=== PATIENT | male | born 1945 | race Caucasian/White ===

== ENCOUNTER 2016-10-19 07:32 | Outpatient (CLI) | payer MEDICARE ==
[~2016-10-19] VITALS: Ht 188 cm; Wt 95.5 kg
--- NOTE | ~2016-10-19 | OP ---
PATIENT NAME: JESSICA PARSONS MEDICAL RECORD: [id number] :41 LOCATION:D.CAT ADMISSION DATE: SURGEON: STACY CANSECO MD DATE OF OPERATION: 10/19/2016 PROCEDURES: 1. PTCA stent LAD. 2. PTCA stent left circumflex. 3. PTCA stent left circumflex first obtuse marginal. 4. Intravascular ultrasound. 5. Left heart catheterization. 6. Selective coronary angiography. 7. Left ventriculogram. INDICATION: Angina and coronary artery disease. PROCEDURE IN DETAIL: After informed consent has been obtained and after detailed explanation of risks, benefits as well as alternative therapies, the patient elected to proceed with angiogram and angioplasty. The right radial artery was prepped and draped in normal sterile fashion. Right radial artery was cannulated via modified Seldinger technique with placement of 6-Montserratian sheath. All catheters exchanged through this sheath. FINDINGS: The left ventriculogram was performed in the standard 30-degree GUAJARDO view reveals good cardiac wall motion throughout all segments. Overall ejection fraction estimated at 55%. SELECTIVE CORONARY ANGIOGRAPHY: 1. Left main showed no significant angiographic disease. 2. Left anterior descending has previously placed stent. This is widely patent. However, in the mid vessel, there is 90% stenosis. 3. The left circumflex had an 80% stenosis in the mid vessel. The first obtuse marginal has a 90% stenosis. 4. Right coronary has moderate irregularities, previously placed stent is widely patent. Intravascular ultrasound reveals that there is no significant disease elsewise. PTCA STENT OF THE LAD: The LAD lesion was an 8-mm lesion in a 2.25 mm vessel, JULIO C 3 flow before and after the intervention. Intervention was undertaken with a 2.25 x 11 mm BioFreedom stent. Result was 0% residual stenosis. PTCA STENT OF THE LEFT CIRCUMFLEX: The lesion was a 6-mm lesion in a 3.0 mm vessel, JULIO C 3 flow before and after the intervention. The intervention was undertaken with a 3.0 x 8 mm BioFreedom stent. Result was 0% residual stenosis. PTCA STENT OF THE FIRST OBTUSE MARGINAL: The lesion was a 90% stenosed lesion in a 2.5 mm vessel, it was an 11-mm lesion. The stent used was a 2.5 x 14 mm BioFreedom stent. Result was 0% residual stenosis. OVERALL IMPRESSION: Successful percutaneous transluminal coronary angioplasty stent of the left anterior descending and circumflex, both going from 90% initial stenosis to 0% residual stenosis. TRANSINT:[id number] Voice Confirmation ID: [id number] DOCUMENT ID: [id number] OPERATIVE REPORT [id number] JESSICA PARSONS JEFFREY MD CC: [id number] DICTATION DATE: 10/19/16 1023 PACK MASTER: 10/19/16 1811 DEP CLI 10/19/16 [facility] [address] [id number]
--- NOTE | ~2016-10-19 | HP ---
PATIENT: JESSICA PARSONS MEDICAL RECORD: [id number] ACCOUNT: [id number] LOCATION:[facility] : 41 ADMISSION DATE: 10/19/16 HISTORY AND PHYSICAL EXAMINATION ADMITTING DIAGNOSES: 1. Angina. 2. Abnormal nuclear stress test. 3. Chronic obstructive pulmonary disease. 4. Hypertension. 5. Hyperlipidemia. 6. Chronic NSAID use. HISTORY OF PRESENT ILLNESS: This is a gentleman who has a past history of coronary artery disease. Last cardiac intervention was 11/06/2013, now has recurrent anginal symptomatology. Nuclear stress test revealed significant reversible ischemia. He is now brought for cardiac catheterization. PHYSICAL EXAMINATION: GENERAL APPEARANCE: Well-nourished, well-developed, appears stated age. Level of distress, comfortable. PSYCHIATRIC: Mental status, alert, normal affect. Orientation, oriented to time, place and person. EYES: Lids and conjunctiva, noninjected. No discharge, no pallor. ENT: Lips, teeth, gums, normal dentition. Oropharynx, no cyanosis, no pallor. NECK: Carotid arteries, bilateral normal upstroke, no bruits, no thrills. JUGULAR VEINS: No jugular venous pressure or distention. CERVICAL LYMPH NODES: Nontender, nonenlarged. THYROID: Not enlarged. Nontender. No nodules. LUNGS: Respiratory effort, unlabored. CHEST: Normal curvature. No thoracic deformity. No chest wall tenderness. Percussion, resonant. Auscultation, clear. No wheezes, no rales, no rhonchi. CARDIOVASCULAR: Precordial exam, nondisplaced. No heaves or pericardial thrills. Rate and rhythm, regular. Heart sounds, normal S1, normal S2. No S3, no gallop, no rub. Systolic murmur, not heard. Diastolic murmur, not heard. EXTREMITIES: No cyanosis, no edema. Peripheral pulses, full and equal in all extremities, except as noted. No bruits appreciated. ABDOMEN: Soft, nondistended. Normal aorta. No bruit. Nontender. No masses. Liver, nontender, no hepatomegaly. Spleen, nontender, no splenomegaly. MUSCULOSKELETAL: No joint tenderness. No joint swelling. No erythema. NEUROLOGICAL: Normal gait, normal strength, normal tone. SKIN: Warm and dry. REVIEW OF SYSTEMS: The patient reports easy bruising but reports no swollen glands. The patient reports no fever, no night sweats, no significant weight gain, no significant weight loss. No significant exercise tolerance. The patient reports no dry eyes, no irritation, no vision change. Patient reports no difficulty hearing and no ear pain. Patient reports no frequent nose bleeds or nose and sinus problems. Patient reports on arm pain on exertion. No shortness of breath while lying down. No history of heart murmur. Patient reports no cough, no wheezing or coughing up blood. Patient reports no abdominal pain, no vomiting. Normal appetite. No diarrhea and not vomiting blood. No nausea and no constipation. Patient reports no incontinence. No difficulty urinating. No hematuria. No increased frequency. Patient reports no muscle aches. No weakness, no arthralgias, no back pain. No swelling of the HISTORY AND PHYSICAL [id number] JESSICA PARSONS extremities. Patient reports no abnormal mole, no jaundice, no rashes. Reports no loss of consciousness. No weakness and no numbness. No seizures, dizziness, or headaches. The patient reports no depression, no sleep disturbance, feeling safe in a relationship and no alcohol abuse. Patient reports on fatigue. Reports no runny nose or sinus pressure. No itching, no hives, and no frequent sneezing. OVERALL IMPRESSION: Chest pain compatible with angina and abnormal nuclear stress test. He has a high likelihood of recurrent hemodynamically significant coronary artery disease. We will proceed with coronary angiography. Further care depends upon the findings of the angiography. TRANSINT:[id number] Voice Confirmation ID: [id number] DOCUMENT ID: [id number] STACY CANSECO MD CC: [id number] DICTATION DATE: 10/19/16909 SYSTEMS PLANNER: 10/19/16 1019 [facility] [address] [place] [address]
--- NOTE | ~2016-10-19 | HEMODYNAMI ---
PATIENT:JESSICA PARSONS MEDICAL RECORD: [id number] : 41 LOCATION:[facility] ADMISSION DATE: 10/19/16 Generatedon:10/19/201610:23 Patient name: JESSICA PARSONS Patient #: [id number] SSN: DO B: 1945 Date of study: 10/19/2016 Page: Of Hemodynamic Procedure Report Patient Data Patient Demographics Procedure consent was obtained First Name: JESSICA Gender: Male Last Name: JAQUELINE : 1945 [facility] Initial: B Age: 71 year(s) Patient #: [id number] Race: Additional ID: [id number] Contact details [address]: [address] [place] [address] State: [place] City: [place] Zip code: [address] Past Medical History Allergies: No known allergies Admission Admission Data Admission Date: 10/19/2016 Admission Time: 7:32 Height (in.): 74 BSA: 2.22 (m2) Height (cm.): 187.96 BMI: 26.96 (kg/m2) Weight (lbs.): 210 Weight (kg.): 95.25 Lab Results Lab Result Date: 10/19/2016 Lab Result Time: 8:05 Biochemistry Name Units Result Min Max BUN mg/dl 15 --(--*-)-- 7 18 Creatinine mg/dl 0.9 --(-*--)-- 0.6 1.3 CBC Name Units Result Min Max Hematocrit % 42.4 --(*---)-- 42 54 Hemoglobin g/dl 14.2 --(*---)-- 13.5 17.5 Procedure Procedure Types Cath Procedure Diagnostic Procedure [facility] w/Coronaries FFR/IVUS Intra-Coronary IVUS Initial PCI Procedure Coronary Stent Initial x2 Coronary Stent Additional Miscellaneous Procedures Moderate Sedation up to 45 minutes Procedure Description Procedure Date Procedure Date: 10/19/2016 Procedure Start Time: 9:50 Procedure End Time: 10:22 Procedure Staff Name Function Rohan Rabago MD Performing Physician Fernando Fuentes RT Scrub Analia Abebe RN Nurse Reji Cr RT Monitor Procedure Data Cath Procedure Fluoroscopy Diagnostic fluoroscopy Total fluoroscopy Time: time: 10.4 min 10.4 min Diagnostic fluoroscopy Total fluoroscopy dose: dose: 1477 mGy 1477 mGy Contrast Material Contrast Material Type Amount (ml) Isovue 300 186 Entry Location Entry Primary Successful Side Size Upsize Upsize Entry Closure Andujar ccessful Closure Location (Fr) 1 (Fr) 2 (Fr) Remarks Device Remarks Radial Right 6 Fr Mechanical artery Short Compression Estimated blood loss: 10 ml Diagnostic catheters Device Type Used For End Catheter Placement Diagnostic Terumo 5Fr Procedure [place] 110cm catheter Procedure Complications No complications Procedure Medications Medication Administration Route Dosage Oxygen NC 2 l/min Lidocaine 2% added to field 20 Heparin Flush Bag added to field 2 bags (1000units/500ml NS) 0.9% NaCl I.V. 100 ml/hr Radial Cocktail added to field 1 syringe (Verapomil 2mg/Nitro 400mcg/Heparin 1500units) Versed I.V. 1 mg Fentanyl I.V. 50 mcg Radial Cocktail I.A. 1 syringe (Verapomil 2mg/Nitro 400mcg/Heparin 1500units) Versed I.V. 1 mg Fentanyl I.V. 50 mcg Heparin Bolus I.V. 4000 units Versed I.V. 0.5 mg Fentanyl I.V. 25 mcg Versed I.V. 0.5 mg Fentanyl I.V. 25 mcg Hemodynamics Rest BSA: 2.22 (m2) O2 Consumption: Estimated: 252.54 (ml/min) O2 Consumption indexed : Estimated:113.76 (ml/min/m) Heart Rate: 66 (bpm) Pressure Samples Time Site Value (mmHg) Purpose Heart Use Rate(bpm) 9:53 LV 99/12,41 Snapshot 60 9:53 LV 113/12,16 Snapshot 68 Snapshots Pre Cath Intra NCS Post Cath Vital Signs Time Heart Resp SPO2 etCO2 [id number] NIBP (mmHg) Rhythm Pain Sedation Rate (ipm) (%) (mmHg) (mmHg) Status Level (bpm) 9:44:10 68 16 99 0 0 173/98(126) NSR 0 (11) 10(A) , No pain 9:48:28 68 16 97 0 0 139/94(117) NSR 0 (11) 10(A) , No pain 9:52:46 68 15 96 0 0 135/73(110) NSR 0 (11) 9(A) , No pain 9:57:02 65 14 96 0 0 113/74(93) NSR 0 (11) 9(A) , No pain 10:02:07 65 18 94 0 0 138/72(104) NSR 0 (11) 9(A) , No pain 10:06:25 61 15 98 0 0 141/70(113) NSR 0 (11) 9(A) , No pain 10:10:41 57 16 99 0 0 141/78(112) NSR 0 (11) 9(A) , No pain 10:15:44 59 16 98 0 0 164/67(117) NSR 0 (11) 10(A) , No pain 10:20:08 60 16 98 0 0 142/81(105) NSR 0 (11) 10(A) , No pain Medications Time Medication Route Dose Verified Delivered Reason Note s Effectiveness by by 9:40:19 Oxygen NC 2 l/min Rohan Singhie used for Hima Abebe RN procedure 9:40:28 Lidocaine 2% added 20ml Rohan Madrigal for local to vial Hima Rabago MD anesthetic field 9:40:34 Heparin Flush added 2 bags Rohan Madrigal used for Bag to Hima Rabago MD procedure (1000units/500ml field NS) 9:40:43 0.9% NaCl I.V. 100 Rohan Buffie Per physician ml/hr Hima Abebe RN 9:43:48 Radial Cocktail added 1 Rohan Helms (Verapomil to syringe Hima Abebe RN 2mg/Nitro field 400mcg/Heparin 1500units) 9:47:02 Versed I.V. 1 mg Rohan Singhie for sedation Hima Abebe RN 9:47:09 Fentanyl I.V. 50 mcg Rohan Singhie for sedation Hima Abebe RN 9:51:43 Radial Cocktail I.A. 1 Rohan Rohan for (Verapomil syringe Hima hernandez 2mg/Nitro 400mcg/Heparin 1500units) 9:51:51 Versed I.V. 1 mg Rohan Helms for sedation Hima Abebe RN 9:51:56 Fentanyl I.V. 50 mcg Rohan Helms for sedation Hima Abebe RN 9:59:56 Heparin Bolus I.V. 4000 Rohan Helms for veri fied units Hima Abebe RN anticoagulation with dr rabago 10:05:44 Versed I.V. 0.5 mg Rohan Helms for sedation Hima Abebe RN 10:05:50 Fentanyl I.V. 25 mcg Rohan Helms for sedation Hima Abebe RN 10:11:06 Versed I.V. 0.5 mg Rohan Helms for sedation Hima Abebe RN 10:11:10 Fentanyl I.V. 25 mcg Rohan Helms for sedation Hima Abebe RN Procedure Log Time Note 9:25:57 Informed consent obtained and on chart 9::07 Diagnostic Cath Status : Elective 9:27:05 Fernando Fuentes RT(R) (CV) sent for patient. Start room use. 9:27:07 Time tracking: Regular hours 9:27:14 Plan of Care:Hemodynamics will remain stable., Cardiac rhythm will remain stable., Comfort level will be maintained., Respiratory function will remain adequate., Patient/ family verbilizes understanding of procedure., Procedure tolerated without complication., Recovers from procedure without complications.. 9:29:20 Patient received from Pre/Post Procedure Room to CCL 1 Alert and oriented. Tansferred to table in Supine position. 9:29:21 Warm blankets applied, and john hugger turned on for patient comfort. 9:29:22 Correct patient and procedure confirmed by team. 9:29:23 ECG and BP/O2 sat monitors applied to patient. 9:40:19 Oxygen 2 l/min NC was administered by Analia Abebe RN; used for procedure; 9:40:28 Lidocaine 2% 20ml vial added to field was administered by Rohan Rabago MD; for local anesthetic; 9:40:34 Heparin Flush Bag (1000units/500ml NS) 2 bags added to field was administered by Rohan Rabago MD; used for procedure; 9:40:43 0.9% NaCl 100 ml/hr I.V. was administered by Analia Abebe RN; Per physician; 9:42:56 Vital chart was started 9:43:48 Radial Cocktail (Verapomil 2mg/Nitro 400mcg/Heparin 1500units) 1 syringe added to field was administered by Analia Abebe RN; ; 9:44:26 H&P Date Dictated: 10/19/2016 Within 30 days and on chart., H&P Addendum completed by physician on day of procedure. (MUST COMPLETE FOR ALL OUTPATIENTS). 9:44:27 Pre-procedure instructions explained to patient. 9:44:27 Pre-op teaching completed and patient verbalized understanding. 9:44:30 Family in waiting room. 9:44:39 Patient NPO since Midnight. 9:44:44 Patient allergic to No known allergies 9:44:46 Is the patient allergic to Iodine/contrast media? No. 9:44:51 Is patient on blood thinner?Yes 9:44:53 ACC The patient was administered the following blood thiners within the last 24 hours: ACCPlavix 9:45:02 Patient diabetic? No. 9:45:06 Previous problem with sedation/anesthesia? No ? 9:45:07 Snore? Yes 9:45:10 Sleep apnea? Yes 9:45:11 Deviated septum? No 9:45:13 Opens mouth fully? Yes 9:45:15 Sticks out tongue? Yes 9:45:18 Airway obstruction? Yes COPD 9:45:22 Dentures? No ? 9:45:27 Modified Jeramy's test Ulnar < 7 seconds 9:45:30 Patient pain scale 0/10 ?. 9:45:37 IV patent on arrival in left hand with 0.9% NaCl at [facility]. 9:46:15 Lab Result : BUN 15 mg/dl 9:46:15 Lab Result : Hemoglobin 14.2 g/dl 9:46:15 Lab Result : Creatinine 0.9 mg/dl 9:46:16 Lab Result : Hematocrit 42.4 % 9:46:18 Lab results completed and on chart. 9:46:20 Right Radial & Right Groin area was prepped with chlora-prep and draped in sterile fashion 9:46:22 Alarms reviewed by R. N. 9:46:22 Sharps counted by scrub and verified by R.N. 9:46:27 Use device set Radial Dx 9:46:28 MBrace Wrist Support opened to sterile field. 9:46:29 Acist Manifold opened to sterile field. 9:46:29 Acist Hand Control opened to sterile field. 9:46:30 Tegaderm 4 x 4 opened to sterile field. 9:46:31 Acist Syringe opened to sterile field. 9:46:31 Medline Cath Pack opened to sterile field. 9:46:31 Bag Decanter opened to sterile field. 9:46:32 St Hakeem 260cm J .035 wire opened to sterile field. 9:46:36 Physician arrived 9:46:36 --------ALL STOP TIME OUT------ 9:46:37 Final Timeout: patient, procedure, and site verified with staff and physician. All members of the team are in agreement. 9:46:40 Right Radial & Right Groin site verified by team. 9:46:43 Physical assessment completed. ASA score P 2 - A patient with mild systemic disease as per Rohan Rabago MD. 9:46:45 Sedation plan: IV Moderate Sedation Versed, Fentanyl 9:47:02 Versed 1 mg I.V. was administered by Analia Abebe RN; for sedation; 9:47:09 Fentanyl 50 mcg I.V. was administered by Analia Abebe RN; for sedation; 9:47:21 Merit Prelude 6Fr Radial Sheath (NO COST SUPPLY) opened to sterile field. 9:48:54 Baseline sample Acquired. 9:48:56 Baseline sample Acquired. 9:49:03 Baseline sample Acquired. 9:49:15 Baseline sample Acquired. 9:50:10 Procedure started. 9:50:10 Full Disclosure recording started 9:50:14 Local anesthetic to right radial artery with Lidocaine 2% by Rohan Rabago MD.INITIAL ACCESS ONLY 9:50:21 A 6 Fr Short sheath was inserted into the Right Radial artery 9:51:43 Radial Cocktail (Verapomil 2mg/Nitro 400mcg/Heparin 1500units) 1 syringe I.A. was administered by Rohan Rabago MD; for vasodilation; 9:51:51 Versed 1 mg I.V. was administered by Analia Abebe RN; for sedation; 9:51:53 Zero performed for pressure channel P1 9:51:56 Fentanyl 50 mcg I.V. was administered by Analia Abebe RN; for sedation; 9:51:56 Zero performed for pressure channel P1 9:51:59 Zero performed for pressure channel P1 9:52:02 Zero performed for pressure channel P1 9:52:23 A Diagnostic Terumo 5Fr [place] 110cm catheter was advanced over the wire and used for Procedure. 9:53:55 LV gram done using GUAJARDO 9:54:02 Injector settings: Ml/sec: 10, Volume: 20, 9:54:23 RCA angiography performed. 9:55:34 Cordis 6FR XBLAD 3.5 guide catheter opened to sterile field. 9:56:16 [place] Eagleye IVUS Catheter opened to sterile field. 9:56:50 [place] Whisper J 300cm 0.014 guide wire opened to sterile field. 9:56:56 Merit BasixCompak Inflation Kit opened to sterile field. 9:57:03 Catheter removed. 9:57:07 6 Fr XBLAD 3.5 guide catheter was inserted over the wire 9:57:12 LCA angiography performed. 9:59:16 EosHealthtronic Launcher 6Fr AR 2.0 guide catheter opened to sterile field. 9:59:56 Heparin Bolus 4000 units I.V. was administered by Analia Abebe RN; for anticoagulation; verified with dr rabago 10:00:06 WHISPER wire advanced. 10:01:14 Wire advanced across lesion. 10:03:54 Inflation Number: 1 A Biofreedom 2.25 x 11 Stent (No Cost Implant) was prepped and advanced across the Mid LAD. The stent was deployed at 13 COLLETTE for 0:10 (min:sec). 10:04:21 Stent catheter was removed intact over wire. 10:04:26 Wire redirected to cx. 10:05:15 Patient Height : 74 cm 10:05:17 Patient Weight : 210 kg 10:05:25 Wire removed. damaged. 10:05:41 [place] Whisper J 300cm 0.014 guide wire opened to sterile field. 10:05:44 Versed 0.5 mg I.V. was administered by Analia Abebe RN; for sedation; 10:05:50 Fentanyl 25 mcg I.V. was administered by Analia Abebe RN; for sedation; 10:06:06 WHISPER wire advanced. 10:06:08 Wire advanced across lesion. 10:09:38 Inflation Number: 1 A Biofreedom 2.5 x 14 stent (No Cost Implant) was prepped and advanced across the 1st Ob Liliana. The stent was deployed at 13 COLLETTE for 0:10 (min:sec). 10:09:43 Stent catheter was removed intact over wire. 10:10:14 Wire redirected to CX. 10:11:06 Versed 0.5 mg I.V. was administered by Analia Abebe RN; for sedation; 10:11:10 Fentanyl 25 mcg I.V. was administered by Analia Abebe RN; for sedation; 10:12:27 Inflation Number: 1 A Biofreedom 3.0 x 8 stent (No Cost Implant) was prepped and advanced across the Mid CX. The stent was deployed at 15 COLLETTE for 0:00 (min:sec). 10:12:33 Stent catheter was removed intact over wire. 10:13:03 Wire removed. damaged. 10:13:06 Guide catheter removed. 10:13:10 [place] Arkeia Softwareisper J 300cm 0.014 guide wire opened to sterile field. 10:13:20 6 Fr AR 2 guide catheter was inserted over the wire 10:14:12 WHISPER wire advanced. 10:14:55 Wire advanced across lesion. 10:15:00 IVUS catheter advanced over wire. 10:17:39 IVUS pass to RCA lesion performed. 10:17:40 IVUS catheter removed over wire. 10:17:46 Wire removed. 10:17:47 Guide catheter removed. 10:17:52 Terumo TR Band Standard opened to sterile field. 10:18:03 Sheath removed intact; hemostasis achieved with Mechanical Compression to the Right Radial artery. 10:18:05 Procedure ended.(Physican Out) 10:19:55 Fluoroscopy time 10.40 minutes. 10:19:59 Fluoroscopy dose: 1477 mGy 10:19:59 Flurop Dose total: 1477 10:20:02 Contrast amount:Isovue 300 186ml. 10:20:03 Sharps counted by scrub and verified by R.N. 10:20:05 TR band inflated with 12cc of air. 10:20:07 Insertion/operative site no bleeding no hematoma. 10:20:12 Post right radial artery:stable, soft, clean and dry 10:20:14 Post Procedure Pulses reassessed and unchanged 10:20:15 Post-procedure physical assessment completed. ASA score P 2 - A patient with mild systemic disease as per Rohan Rabago MD. 10:20:17 Post procedure rhythm: unchanged. 10:20:19 Estimated blood loss: 10 ml 10:20:20 Post procedure instruction explained to patient.Patient verbalizes understanding. 10:20:21 Patient needs reinforcement of post procedure teaching. 10:21:46 Procedure type changed to Cath procedure, Diagnostic procedure, LHC, LHC w/Coronaries, FFR/IVUS, Intra-Coronary IVUS Initial, PCI procedure, Coronary Stent Initial x2, Coronary Stent Additional, Miscellaneous Procedures, Moderate Sedation up to 45 minutes 10:22:29 Procedure and supply charges have been captured, reviewed, submitted and are correct. 10:22:32 Procedure Complication : No complications 10:22:34 Vital chart was stopped 10:22:34 See physician's report for complete and final results. 10:22:36 Report given to Pre/Post Procedure Room. 10:22:39 Patient transfered to Pre/Post Procedure Room with Stretcher. 10:22:41 Procedure ended. 10:22:41 Full Disclosure recording stopped 10:22:45 End room use (Document Last) Intervention Summary Intervention Notes Time ActionType Lesion and Equipment Action# Pressure Duration Attributes Used 10:03:54 Place stent Mid LAD Biofreedom 1 13 00:10 2.25 x 11 Stent (No Cost Implant) 10:09:38 Place stent 1st Ob Liliana Biofreedom 1 13 00:10 2.5 x 14 stent (No Cost Implant) 10:12:27 Place stent Mid CX Biofreedom 1 15 00:00 3.0 x 8 stent (No Cost Implant) Device Usage Item Name Manufacture Quantity Catalog Hospital Part Current Minima l Lot# / Number Charge Number Stock Stock Serial# Code [facility] Advanced 1 140-0250-00 234232 51988 736255 5 Wrist Vascular Support Dynamics Acist Acist 1 97103 742883 162935 939300 5 Manifold Medical Systems Inc Acist Hand Acist 1 69853 224340 955796 916180 5 Control Medical Systems Inc Tegaderm 4 3M 1 1626W 464091 480812 439765 5 x 4 Acist Acist 1 00145 457593 019658 523166 20 Syringe Medical Systems Inc Medline Cardinal 1 [id number] 064987 47485 230315 5 Cath Pack Health Bag Microtek 1 2002S 504795 21404 520089 [address] H[address]em St Hakeem 1 330383 471666 367965 206019 30 260cm J .035 wire Merit Merit 1 [id number] 375407 758371 5 Prelude 6Fr Medical Radial Sheath (NO COST SUPPLY) Diagnostic Terumo 1 41-7541 631445 138537 292874 5 Terumo 5Fr [place] 110cm catheter Cordis 6FR Cardinal 1 [id number] 903762 261809 522645 10 XBLAD 3.5 Health guide catheter [place] Hickory 1 [id number] 276543 663234 237793 8 [place] Eagleye IVUS Catheter Branham Branham 3 [id number] 616000 664479 089889 5 Whisper J Vascular 300cm 0.014 guide wire Merit Merit 1 [id number] 945058 615243 549610 15 BasixCompak Medical Inflation Kit Medtronic Medtronic 1 [id number] 719046 38178 948618 1 Launcher 6Fr AR 2.0 guide catheter Biofreedom Biosensors 1 BFRC2-2211 840064 730675 5 [id number] 2.25 x 11 [place] SA Stent (No Cost Implant) Biofreedom Biosensors 1 [facility]2-2514 289349 800293 5 [id number] 2.5 x 14 [place] SA stent (No Cost Implant) Biofreedom Biosensors 1 BFRC2-3008 505601 678675 5 [id number] 3.0 x 8 [place] SA stent (No Cost Implant) Terumo TR Terumo 1 [id number] 498084 422018 520216 40 Band Standard Signature Audit [place] Stage Time Signature Unsigned Intra-Procedure 10/19/2016 Reji Cr 10:23:47 AM RT(R) Signatures Monitor : Reji Cr RT Signature : Date : Time : [facility] [address] [place] [address]
[~2016-10-19 07:32] MED LIST: ACCUNEB0.63 MG/3 INH; BAYER CHEWABLE81 MG PO; METOPROLOL TART50 MG PO; NORVASC2.5 MG PO; PLAVIX75 MG PO; SYMBICORT 16010.2 GM INH
[2016-10-19] MEDS ORDERED: ZOCOR40 MG PO (07:59)
[2016-10-19 08:05] VITALS: BP 147/86; Ht 188 cm; Wt 95.5 kg
[2016-10-19 08:14] LABS: BASOPHILS 0.5 % (0-2); EOSINOPHILS 8.4 % (0-7); HEMATOCRIT 42.4 % (42.0-54.0); HEMOGLOBIN 14.2 g/dL (13.5-17.5); IMMATURE GRANULOCYTES 0.3 % (0-5); LYMPHOCYTES 6.4 % (15-50); MCH 30.4 pg (26.0-34.0); MCHC 33.5 g/dL (31.0-37.0); MCV 90.8 fL (80.0-100.0); MEAN PLATELET VOLUME 9.4 fL (7.4-10.4); MONOCYTES 11.7 % (2-11); NEUTROPHILS 72.7 % (40-80); PLATELET COUNT 260 10x3/uL (130-400); RBC 4.67 10x6/uL (4.20-6.10); RDW 12.9 % (11.5-14.5); WBC 6.6 10x3/uL (4.8-10.8)
[2016-10-19 08:51] LABS: CALC OSMOLALITY 280 mosm/kg (275-300); CALCIUM 8.8 mg/dL (8.5-10.1); CARBON DIOXIDE 27.9 mmol/L (21.0-32.0); CHLORIDE - SERUM 104 mmol/L (98-107); CKMB 0.3 U/L (0.0-3.6); CREATINE KINASE 75 UL (21-232); CREATININE - SERUM 0.9 mg/dL (0.6-1.3); GLUCOSE 108 mg/dL (74-106); POTASSIUM - SERUM 4.2 mmol/L (3.5-5.1); SODIUM 140 mmol/L (136-145); UREA NITROGEN 15 mg/dL (7-18); eGFR NON AFRICAN AMERICAN 88 mL/min (90-120)
[2016-10-19 08:58] LABS: TROPONIN-I < 0.017 ng/mL (0.000-0.060)
--- NOTE | 2016-10-19 10:55 | NUR ---
2L NC, NO RESP DISTRESS NOTED. RIGHT WRIST TR BAND IN PLACE, NO BLEEDING OR HEMATOMA NOTED. VSS. NO C/O CHEST PAIN OR NAUSEA. FAMILY AT BEDSIDE, CALL LIGHT WITHIN REACH.
--- NOTE | 2016-10-19 11:25 | NUR ---
2L NC, NO RESP DISTRESS NOTED. RIGHT WRIST TR BAND CDI, NO BLEEDING OR HEMATOMA NOTED. VSS. NO C/O NAUSEA OR CHEST PAIN. WILL CONTINUE TO MONITOR.
--- NOTE | 2016-10-19 11:40 | NUR ---
RESTING QUIETLY. 2L NC, NO RESP DISTRESS NOTED. RIGHT WRIST TR BAND CDI, NO BLEEDING OR HEMATOMA NOTED. NO C/O CHEST PAIN OR NAUSEA. CALL LIGHT WITHIN REACH.
--- NOTE | 2016-10-19 12:10 | NUR ---
RIGHT WRIST TR BAND IN PLACE, NO BLEEDING OR HEMATOMA NOTED. 2 NC, NO RESP DISTRESS. NO C/O CHEST PAIN OR NAUSEA. VSS. CALL LIGHT WITHIN REACH.
--- NOTE | 2016-10-19 12:40 | NUR ---
RESTING QUIETLY. 2L NC. RIGHT WRIST TR BAND CDI, NO BLEEDING OR HEMATOMA NOTED. CALL LIGHT WITHIN REACH.
--- NOTE | 2016-10-19 13:40 | NUR ---
2CC OF AIR REMOVED FROM TR BAND, BLEEDING NOTED. 3CC OF AIR PUT BACK IN, BLEEDING STOPPED.
--- NOTE | 2016-10-19 14:01 | NUR ---
3CC OF AIR REMOVED FROM TR BAND, NO BLEEDING NOTED.
--- NOTE | 2016-10-19 14:13 | NUR ---
LEFT HAND PIV D/C'D WITH CATHETER INTACT, BAND AID TO SITE. 2CC OF AIR REMOVED FROM TR BAND, NO BLEEDING NOTED. UP TO BEDSIDE TO GET DRESSED.
--- NOTE | 2016-10-19 14:25 | NUR ---
REMAINING AIR REMOVED FROM TR BAND, DRESSING PLACED TO SITE. DISCHARGE INSTRUCTIONS GIVEN, VERBALIZED UNDERSTANDING.
--- NOTE | 2016-10-19 14:39 | NUR ---
TAKEN OUT VIA WHEELCHAIR BY [facility]OMEN[employer]S ACTIVITIES ADVISER. LEFT FACILITY WITH FAMILY MEMBER AND ALL PERSONAL BELONGINGS.
== END 2016-10-19 14:39 | disposition home or self-care (01) ==
LOC: D.CATH 07:32
PROVIDERS: Internal Medicine Interventional Cardiology
DX: I25.119 Atherosclerotic heart disease of native coronary artery with unspecified angina pectoris (principal); Z00.6 Encounter for examination for normal comparison and control in clinical research program; R94.39 Abnormal result of other cardiovascular function study; I10 Essential (primary) hypertension; E78.5 Hyperlipidemia, unspecified; Z79.1 Long term (current) use of non-steroidal anti-inflammatories (NSAID); Z01.812 Encounter for preprocedural laboratory examination
CPT/HCPCS: 92978; 93458; C9600 ×2; C9601

== ENCOUNTER 2017-07-26 12:45 | Emergency (ER) | payer MEDICARE ==
[~2017-07-26 12:45] MED LIST changes: +ZOCOR40 MG PO
[2017-07-26 13:14] LABS: BASOPHILS 0.2 % (0-2); EOSINOPHILS 2.3 % (0-7); HEMATOCRIT 41.5 % (42.0-54.0); IMMATURE GRANULOCYTES 0.3 % (0-5); LYMPHOCYTES 8.7 % (15-50); MCH 30.1 pg (26.0-34.0); MCHC 33.7 g/dL (31.0-37.0); MCV 89.2 fL (80.0-100.0); MEAN PLATELET VOLUME 9.2 fL (7.4-10.4); MONOCYTES 7.7 % (2-11); NEUTROPHILS 80.8 % (40-80); PLATELET COUNT 248 10x3/uL (130-400); RBC 4.65 10x6/uL (4.20-6.10); RDW 13.1 % (11.5-14.5)
[2017-07-26 13:54] LABS: INR 1.02 (0.85-1.17)
[2017-07-26 13:55] LABS: APTT 34.2 SECONDS (22.8-39.4)
[2017-07-26 14:02] LABS: ALBUMIN 3.2 g/dL (3.4-5.0); ALKALINE PHOSPHATASE 54 U/L (46-116); ALT (SGPT) 14 U/L (10-68); CALC OSMOLALITY 278 mosm/kg (275-300); CARBON DIOXIDE 26.5 mmol/L (21.0-32.0); CHLORIDE - SERUM 104 mmol/L (98-107); CREATININE - SERUM 0.8 mg/dL (0.6-1.3); GLUCOSE 135 mg/dL (74-106); POTASSIUM - SERUM 3.7 mmol/L (3.5-5.1); PROTEIN - SERUM 6.9 g/dL (6.4-8.2); SODIUM 138 mmol/L (136-145); UREA NITROGEN 14 mg/dL (7-18); eGFR NON AFRICAN AMERICAN > 90 mL/min (90-120)
== END 2017-07-26 14:42 | disposition other institution (70) ==
LOC: D.ER 12:45
PROVIDERS: Emergency Medicine
DX: I63.9 Cerebral infarction, unspecified (principal); R47.81 Slurred speech; R29.810 Facial weakness

== ENCOUNTER 2017-07-31 17:48 | Inpatient (IN) | payer MEDICARE ==
[~2017-07-31] VITALS: Ht 188 cm; Wt 90.7 kg
--- NOTE | ~2017-07-31 | CN ---
PATIENT NAME:JESSICA CURIEL MEDICAL RECORD: [id number] : 41 LOCATION:[id number] ADMIT DATE: 07/31/17 ACCOUNT: [id number] CONSULTING PHYSICIAN: KIM OMER MD REFERRING PHYSICIAN: VIDHYA KHALIL MD DATE OF CONSULTATION: 08/22/2017 CONSULT REQUESTING PHYSICIAN: Dr. Goldman. REASON FOR CONSULTATION: Right sided pleural effusion, atelectasis of right lower lobe. HISTORY OF PRESENT ILLNESS: Mr. Curiel is a 72-year-old gentleman who has a history of CA of the lung, COPD. 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 Since then, he is on Plavix. The patient has swallowing evaluation and he is on pureed thick diet. According to the patient, he coughs whenever he is eating, he feels like the food is not going down his throat. Denies any fever and chill. The patient has chest radiograph and that was abnormal. CT scan of the chest was done, which showed moderate side right pleural effusion with atelectasis. He follows by Dr. Goldman for CA of the lung. It was more than 9 years ago and this cancer was in remission. REVIEW OF SYSTEMS: Mainly in the history of present illness. PAST MEDICAL HISTORY: 1. History of cancer of the lung. 2. Chronic obstructive pulmonary disease. 3. Coronary artery disease. 4. Hypertension. 5. History of myocardial infarction. 6. History of ethanol abuse. 7. History of skin cancer. PAST SURGICAL HISTORY: 1. Coronary artery angioplasty. 2. Cataract surgery. 3. Skin cancer and excision. ALLERGIES: No known drug allergies. MEDICATIONS: On Birdbox is reviewed. He is on Plavix, albuterol/ipratropium nebulizer. FAMILY HISTORY: Noncontributory. PHYSICAL EXAMINATION: GENERAL: Now, the patient is lying comfortably in bed. He is not in acute distress. VITAL SIGNS: The blood pressure is 121/79, pulse is 89, respiration 22, temperature 98.2, SpO2 is 94% on room air. HEENT: Conjunctivae are pink. Sclerae are not icteric. There is bruising of the left eyelids. NECK: Neck is supple, no JVD. CHEST: There are decreased breath sound at the right base with dullness of percussion. CONSULT REPORT [id number] JESSICA CURIEL ABDOMEN: Abdomen is soft, bowel sounds present. No hepatosplenomegaly. RECTAL: Deferred. EXTREMITIES: No cyanosis, no clubbing, no pedal edema. SKIN: The skin is warm, normal turgor. CENTRAL NERVOUS SYSTEM: The patient is awake and alert. There are no obvious cranial nerve abnormality. The gait was not tested. He has hemiparesis of the left side, left lower extremity worse than the left upper extremity. IMAGING: CT scan of the chest: There is moderate large sized right-sided pleural effusion. There is atelectasis of right lower lobe with volume loss. There is significant debris in the right main stem and some in the left main stem. LABORATORY DATA: CBC: The WBC on admission was 14.2, hemoglobin 13.3, hematocrit 41.5, the platelet count was 445. IMPRESSION: 1. Right pleural effusion. 2. Atelectasis of the right lower lobe, pneumonia of the right lower lobe, possible aspiration pneumonia with the patient's history of CVA and dysphagia and coughing when he is eating. 3. Cerebrovascular accident with right hemiparesis. 4. Leukocytosis secondary to pneumonia. 5. History of CA of the lung, status post chemotherapy and radiation therapy, almost 10 years ago, followed by Dr. Goldman. 6. Oral thrush. 7. Chronic obstructive pulmonary disease without exacerbation. RECOMMENDATION: 1. I have detailed discussion with the patient and daughter and Dr. Goldman. The patient and daughter do not want anything aggressive at this state. I will start him on Zosyn IV and Levaquin IV to cover for aspiration and hospital-acquired pneumonia. 2. Follow up chest radiograph. Continue albuterol/ipratropium nebulizer. 3. The swallowing evaluation is in progress. Dr. Goldman, thank you for involving me in the care of Mr. Curiel. TRANSINT:[id number] Voice Confirmation ID: [id number] DOCUMENT ID: [id number] KIM OMER MD at 1806 CC: [id number] DICTATION DATE: 08/22/17 1759 NETWORK CONTROL TECHNICIAN: 08/22/172001 ADM IN [id number] [place] [address]
--- NOTE | ~2017-07-31 | RHP ---
PATIENT: JESSICA PARSONS MEDICAL RECORD: [id number] ACCOUNT: [id number] LOCATION:[id number] : 41 ADMISSION DATE: 07/31/17 REHABILITATION HISTORY AND PHYSICAL EXAMINATION POST ADMISSION PHYSICIAN EXAMINATION POST-ADMISSION PHYSICAL EXAMINATION AND HISTORY AND PHYSICAL DATE OF ADMISSION: 07/31/2017 ADMITTING DIAGNOSIS: Right middle cerebral artery infarction. HISTORY OF PRESENT ILLNESS: The patient is a 72-year-old gentleman, who lives at home, was completely independent prior to this hospitalization and his doctor called to check on him on 07/26, noticed he had slurred speech and he said he had fallen. EMT was called and brought to [facility]. He was transferred to [facility] on 07/26 for further neurological evaluation. He was outside of the TPA window, so this was not given. 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 He presented with slurred speech, left hemianopia, left facial droop, and left extremity weakness. He has a past medical history significant for lung cancer that he had been treated for about 15 years ago, COPD, coronary artery disease, UT with stents, hypertension, shortness of breath. He does drink a beer a day. He had a skin cancer excision about 4 weeks ago. He has had CV surgery and did not recommend at this time for carotid artery occlusion. The patient was placed on Plavix and aspirin for the next 3 weeks and continuation of only one after 3 weeks. He was placed on Lipitor 40 mg due to worsening atherosclerosis. He has been on a cardiac diet. He sustained a couple of falls while in the hospital and seems to have judgment impairment as well as continued decreased mobility safety, the latest was witnessed on 07/30. Head CT was ordered to rule out hemorrhage. The patient also treated prophylactically for alcohol withdrawal with thiamine and folate and multivitamin and reportedly received some alcohol in the hospital. As of 07/31, he is oriented, but seems a little sleepy. He is mildly confused. The patient states that they have been trying to hold the Ativan on him because it has caused a little bit more confusion. He is cooperative. Moves all extremities other than the left-sided weakness. Would definitely need an inpatient rehab if he has any chance of returning home. Comorbidities include right middle cerebral artery infarction, right internal carotid artery infarction, COPD, history of lung cancer, history of UT, coronary artery disease, hypertension, hypercholesterolemia, and alcohol abuse. PAST MEDICAL HISTORY: Significant for lung cancer, COPD, coronary artery disease, UT, hypertension, shortness of breath, chronic beer use/ETOH problems, skin cancer. PAST SURGICAL HISTORY: Includes coronary artery angioplasty. He has had cataract surgery. He has had skin cancer excision. ALLERGIES: No known drug allergies. CURRENT MEDICATIONS: [facility] He is on metoprolol 50 mg daily. He is on aspirin chewable 81 mg daily, Norvasc 5 mg daily, thiamine 100 mg daily, Protonix 40 mg daily, Plavix 75 mg daily, polyethylene glycol 17 grams in 8 ounces of water daily, Advair 2 puffs b.i.d., Bactroban ointment as needed, HISTORY AND PHYSICAL [id number] JESSICA PARSONS atorvastatin 40 mg at bedtime, and Tylenol 650 every 4-6 hours as needed. HABITS: Does have history of alcohol use. FAMILY HISTORY: Noncontributory. SOCIAL HISTORY: The patient hopes to return back home and get back to his prior level of function if possible. REVIEW OF SYSTEMS: GENERAL: Does complain of weakness, mainly on the left side. HEENT: Denies cold, cough, or congestion. CARDIOVASCULAR: Denies chest pain. PHYSICAL EXAMINATION: VITAL SIGNS: Stable, afebrile. GENERAL: An elderly gentleman, in no acute distress upon exam. HEENT: Normocephalic and atraumatic. Mucosa moist. NECK: Supple. No lymphadenopathy. LUNGS: Clear at this time. HEART: Regular rate and rhythm. ABDOMEN: Benign. EXTREMITIES: No clubbing, cyanosis, or edema. NEUROLOGIC: He does have noted weakness. He is slow to mentate also. LABORATORY DATA: Admit white count was 9.1, H&H of 12.9 and 39.5, and platelet count of 294. Admit chemistry showed a sodium of 138, potassium 3.8, BUN and creatinine of 24 and 0.9, and blood sugar was 94. ASSESSMENT: This is a 72-year-old gentleman admitted to the rehab with a working diagnosis of cerebrovascular accident involving the right middle cerebral artery. The patient has potential to make improvement. We will institute the following multidisciplinary therapies including, but not limited to physical, occupational, respiratory, speech, nutritional services, prosthetics and orthotics. Given his complex medical condition and risks for more complications, rehabilitation services cannot be provided at a low level of care such as a senior care facility. PLAN: 1. Admit to [facility] for intensive inpatient therapy to include the following disciplines: A. Physical therapy to improve gait, all transfer skills and bed mobility to a modified independent level. B. Occupational therapy to improve activities of daily living to a modified independent level. C. Case management to assist with discharge planning and placement options. D. Nutrition to assist with nutritional needs. E. Rehabilitation nursing to assist in monitoring the patient's underlying medical conditions and to assist with any type of bowel or bladder management. 2. The patient's current medications and medical care will be continued. 3. The patient will be placed on standard fall precautions. 4. I am going to prophylax him with a little bit of Librium 3 times a day. 5. We will discuss this patient during care team staff meeting this week and hopefully get home soon. HISTORY AND PHYSICAL [id number] JESSICA PARSONS TRANSINT:[id number] Voice Confirmation ID: [id number] DOCUMENT ID: [id number] 08/03/2017 Edited for teresa ADAME. WENDI notes whether there has been none or any medical/functional change since admission: - No changce since preadmission screen. WENDI attests patient continues to be appropriate for IRF: - Continues to be appropriate. VIDHYA KHALIL MD at 1012 CC: [id number] DICTATION DATE: 08/02/17 08 CARDIAC CATH TECH: 08/02/17 1014 ADM IN [facility] [address] [id number]
[2017-07-31] MEDS ORDERED: LIPITOR40 MG PO (18:33)
[2017-07-31] MEDS ORDERED: ACETAMINOPHEN325 MG PO (18:33)
[2017-07-31] MEDS ORDERED: MUPIROCIN22 GM TOPICAL (18:34)
[2017-07-31] MEDS ORDERED: PROTONIX40 MG PO (18:34)
[2017-07-31] MEDS ORDERED: VITAMIN B-1100 M1 PO (18:34)
[2017-07-31] MEDS ORDERED: ASPIRIN81 MG PO (18:35)
[2017-07-31] MEDS ORDERED: NORVASC5 MG PO (18:35)
[2017-07-31] MEDS ORDERED: IPRAT-ALBUT 0.5-3 ML UPD (18:36)
[2017-07-31] MEDS ORDERED: TOPROL XL50 MG PO (18:36)
[2017-07-31 19:00] VITALS: BP 146/68
[2017-08-01 06:40] LABS: BASOPHILS 0.2 % (0-2); EOSINOPHILS 5.1 % (0-7); HEMATOCRIT 39.5 % (42.0-54.0); HEMOGLOBIN 12.9 g/dL (13.5-17.5); IMMATURE GRANULOCYTES 0.4 % (0-5); LYMPHOCYTES 5.1 % (15-50); MCH 29.4 pg (26.0-34.0); MCHC 32.7 g/dL (31.0-37.0); MEAN PLATELET VOLUME 9.4 fL (7.4-10.4); MONOCYTES 12.6 % (2-11); NEUTROPHILS 76.6 % (40-80); PLATELET COUNT 294 10x3/uL (130-400); RBC 4.39 10x6/uL (4.20-6.10); RDW 12.9 % (11.5-14.5); WBC 9.1 10x3/uL (4.8-10.8)
[2017-08-01 06:56] LABS: CALC OSMOLALITY 279 mosm/kg (275-300); CALCIUM 9.1 mg/dL (8.5-10.1); CARBON DIOXIDE 25.1 mmol/L (21.0-32.0); CHLORIDE - SERUM 104 mmol/L (98-107); CREATININE - SERUM 0.9 mg/dL (0.6-1.3); GLUCOSE 94 mg/dL (74-106); POTASSIUM - SERUM 3.8 mmol/L (3.5-5.1); SODIUM 138 mmol/L (136-145); UREA NITROGEN 24 mg/dL (7-18); eGFR NON AFRICAN AMERICAN 88 mL/min (90-120)
[2017-08-01 08:05] VITALS: BP 154/67
[2017-08-01 13:31] VITALS: Ht 188 cm; Wt 90.7 kg
[2017-08-01 19:00] VITALS: BP 116/56; BP 116/57
[2017-08-02 08:21] VITALS: BP 126/68
[2017-08-02 19:05] VITALS: BP 160/52
[2017-08-03 07:33] VITALS: BP 137/70
[2017-08-03 19:15] VITALS: BP 134/69
[2017-08-04 06:06] LABS: CALC OSMOLALITY 288 mosm/kg (275-300); CALCIUM 9.2 mg/dL (8.5-10.1); CHLORIDE - SERUM 104 mmol/L (98-107); CREATININE - SERUM 0.9 mg/dL (0.6-1.3); GLUCOSE 108 mg/dL (74-106); POTASSIUM - SERUM 3.9 mmol/L (3.5-5.1); SODIUM 141 mmol/L (136-145); UREA NITROGEN 33 mg/dL (7-18); eGFR NON AFRICAN AMERICAN 88 mL/min (90-120)
[2017-08-04 06:24] LABS: BASOPHILS 0.1 % (0-2); HEMATOCRIT 37.7 % (42.0-54.0); HEMOGLOBIN 12.2 g/dL (13.5-17.5); IMMATURE GRANULOCYTES 0.3 % (0-5); LYMPHOCYTES 2.8 % (15-50); MCH 28.9 pg (26.0-34.0); MCHC 32.4 g/dL (31.0-37.0); MCV 89.3 fL (80.0-100.0); MEAN PLATELET VOLUME 9.8 fL (7.4-10.4); NEUTROPHILS 84.8 % (40-80); RBC 4.22 10x6/uL (4.20-6.10); WBC 11.5 10x3/uL (4.8-10.8)
[2017-08-04 06:27] LABS: PLATELET COUNT 370 10x3/uL (130-400)
[2017-08-04 08:03] VITALS: BP 137/58
[2017-08-04 19:00] VITALS: BP 128/60
[2017-08-05 07:00] VITALS: BP 149/56
[2017-08-05 20:45] VITALS: BP 129/64
[2017-08-06 08:00] VITALS: BP 149/74
[2017-08-06 21:00] VITALS: BP 138/58
[2017-08-07 08:00] VITALS: BP 145/59
[2017-08-07 20:09] VITALS: BP 131/65
[2017-08-08 07:44] VITALS: BP 151/75
[2017-08-08 19:27] VITALS: BP 134/68
[2017-08-08 23:03] LABS: CKMB 0.3 U/L (0.0-3.6); CREATINE KINASE 72 UL (21-232)
[2017-08-08 23:06] LABS: TROPONIN-I < 0.017 ng/mL (0.000-0.060)
[2017-08-09 07:01] LABS: BASOPHILS 0.1 % (0-2); HEMATOCRIT 40.2 % (42.0-54.0); HEMOGLOBIN 13.3 g/dL (13.5-17.5); IMMATURE GRANULOCYTES 0.4 % (0-5); LYMPHOCYTES 5.2 % (15-50); MCH 29.8 pg (26.0-34.0); MCHC 33.1 g/dL (31.0-37.0); MCV 89.9 fL (80.0-100.0); MONOCYTES 5.4 % (2-11); NEUTROPHILS 87.9 % (40-80); RBC 4.47 10x6/uL (4.20-6.10); RDW 12.9 % (11.5-14.5); WBC 13.8 10x3/uL (4.8-10.8)
[2017-08-09 07:06] LABS: PLATELET COUNT 457 10x3/uL (130-400)
[2017-08-09 07:27] LABS: CALC OSMOLALITY 297 mosm/kg (275-300); CALCIUM 9.6 mg/dL (8.5-10.1); CARBON DIOXIDE 27.2 mmol/L (21.0-32.0); CHLORIDE - SERUM 106 mmol/L (98-107); CKMB 0.6 U/L (0.0-3.6); CREATINE KINASE 73 UL (21-232); CREATININE - SERUM 0.9 mg/dL (0.6-1.3); GLUCOSE 108 mg/dL (74-106); POTASSIUM - SERUM 3.3 mmol/L (3.5-5.1); SODIUM 145 mmol/L (136-145); TROPONIN-I < 0.017 ng/mL (0.000-0.060); UREA NITROGEN 34 mg/dL (7-18); eGFR NON AFRICAN AMERICAN 88 mL/min (90-120)
[2017-08-09 07:38] VITALS: BP 131/64
[2017-08-09 10:43] LABS: CKMB 0.4 U/L (0.0-3.6); CREATINE KINASE 71 UL (21-232)
[2017-08-09 10:46] LABS: TROPONIN-I < 0.017 ng/mL (0.000-0.060)
[2017-08-09 19:00] VITALS: BP 133/67
[2017-08-10 07:52] VITALS: BP 129/85
[2017-08-10 19:00] VITALS: BP 123/51
[2017-08-11 05:53] LABS: HEMATOCRIT 41.6 % (42.0-54.0); HEMOGLOBIN 13.5 g/dL (13.5-17.5); MCH 29.5 pg (26.0-34.0); MCHC 32.5 g/dL (31.0-37.0); MEAN PLATELET VOLUME 10.3 fL (7.4-10.4); PLATELET COUNT 517 10x3/uL (130-400); RBC 4.57 10x6/uL (4.20-6.10); RDW 13.3 % (11.5-14.5); WBC 25.6 10x3/uL (4.8-10.8)
[2017-08-11 06:26] LABS: ANION GAP 16.1 mmol/L (8-16); CARBON DIOXIDE 28.7 mmol/L (21.0-32.0); CREATININE - SERUM 1.1 mg/dL (0.6-1.3)
[2017-08-11 06:29] LABS: LYMPHOCYTES 4 % (15-50); MONOCYTES 3 % (2-11); NEUTROPHILS 83 % (40-80); PLATELET ESTIMATE INCREASED
[2017-08-11 06:37] LABS: POTASSIUM - SERUM 3.8 mmol/L (3.5-5.1)
[2017-08-11 08:19] VITALS: BP 129/62
[2017-08-11 19:00] VITALS: BP 130/73
[2017-08-12 06:12] LABS: BASOPHILS 0.1 % (0-2); EOSINOPHILS 0.4 % (0-7); HEMATOCRIT 41.1 % (42.0-54.0); HEMOGLOBIN 13.6 g/dL (13.5-17.5); IMMATURE GRANULOCYTES 0.6 % (0-5); MCHC 33.1 g/dL (31.0-37.0); MCV 90.7 fL (80.0-100.0); MEAN PLATELET VOLUME 10.1 fL (7.4-10.4); MONOCYTES 2.9 % (2-11); PLATELET COUNT 493 10x3/uL (130-400); RBC 4.53 10x6/uL (4.20-6.10); RDW 13.4 % (11.5-14.5); WBC 28.3 10x3/uL (4.8-10.8)
[2017-08-12 06:25] LABS: ANION GAP 13.3 mmol/L (8-16); CALCIUM 10.3 mg/dL (8.5-10.1); CARBON DIOXIDE 28.4 mmol/L (21.0-32.0); CREATININE - SERUM 1.1 mg/dL (0.6-1.3); POTASSIUM - SERUM 3.7 mmol/L (3.5-5.1)
[2017-08-12 08:57] VITALS: BP 120/72
[2017-08-12 09:55] LABS: APPEARANCE HAZY (CLEAR); BILIRUBIN NEGATIVE (NEGATIVE); COLOR DK YELLOW (YELLOW); GLUCOSE NEGATIVE (NEGATIVE); KETONE SMALL mg/dL (NEGATIVE); NITRITE NEGATIVE (NEGATIVE); PROTEIN 2+ mg/dL (NEGATIVE); UROBILINOGEN NORMAL (NORMAL)
[2017-08-12 09:56] LABS: BACTERIA MODERATE /hpf (NONE SEEN); EPITHELIAL CELLS 0-5 /hpf (0-5); MUCUS <1+ /lpf (NONE SEEN); RED CELLS - URINE 0-5 /hpf (0-5); WHITE CELLS - URINE 0-5 /hpf (0-5)
[2017-08-12 09:57] LABS: AMORPHOUS SEDIMENT <1+ /lpf (NONE SEEN)
[2017-08-12 20:49] VITALS: BP 136/85
[2017-08-13 07:45] LABS: BASOPHILS 0.1 % (0-2); EOSINOPHILS 0.3 % (0-7); HEMATOCRIT 40.6 % (42.0-54.0); HEMOGLOBIN 13.3 g/dL (13.5-17.5); IMMATURE GRANULOCYTES 0.3 % (0-5); LYMPHOCYTES 1.8 % (15-50); MCH 29.9 pg (26.0-34.0); MCHC 32.8 g/dL (31.0-37.0); MCV 91.2 fL (80.0-100.0); MEAN PLATELET VOLUME 10.1 fL (7.4-10.4); MONOCYTES 6.6 % (2-11); NEUTROPHILS 90.9 % (40-80); PLATELET COUNT 457 10x3/uL (130-400); RBC 4.45 10x6/uL (4.20-6.10); RDW 13.3 % (11.5-14.5); WBC 20.6 10x3/uL (4.8-10.8)
[2017-08-13 09:21] LABS: ANION GAP 15.3 mmol/L (8-16); CALCIUM 10.6 mg/dL (8.5-10.1); CARBON DIOXIDE 28.4 mmol/L (21.0-32.0); CREATININE - SERUM 1.2 mg/dL (0.6-1.3); POTASSIUM - SERUM 3.7 mmol/L (3.5-5.1)
[2017-08-13 19:35] VITALS: BP 116/74
[2017-08-14 06:34] LABS: BASOPHILS 0.1 % (0-2); EOSINOPHILS 0.4 % (0-7); HEMATOCRIT 41.4 % (42.0-54.0); HEMOGLOBIN 13.2 g/dL (13.5-17.5); IMMATURE GRANULOCYTES 0.4 % (0-5); LYMPHOCYTES 4.7 % (15-50); MCH 29.3 pg (26.0-34.0); MCHC 31.9 g/dL (31.0-37.0); MCV 91.8 fL (80.0-100.0); MEAN PLATELET VOLUME 10.5 fL (7.4-10.4); MONOCYTES 4.8 % (2-11); NEUTROPHILS 89.6 % (40-80); PLATELET COUNT 487 10x3/uL (130-400); RBC 4.51 10x6/uL (4.20-6.10); RDW 13.7 % (11.5-14.5)
[2017-08-14 06:37] LABS: WBC 15.2 10x3/uL (4.8-10.8)
[2017-08-14 06:58] LABS: ANION GAP 14.1 mmol/L (8-16); CALCIUM 10.3 mg/dL (8.5-10.1); CARBON DIOXIDE 28.3 mmol/L (21.0-32.0); CREATININE - SERUM 1.2 mg/dL (0.6-1.3); POTASSIUM - SERUM 3.4 mmol/L (3.5-5.1)
[2017-08-14 08:00] VITALS: BP 168/78
[2017-08-15 06:15] LABS: BASOPHILS 0.1 % (0-2); EOSINOPHILS 0.4 % (0-7); HEMATOCRIT 41.5 % (42.0-54.0); HEMOGLOBIN 13.3 g/dL (13.5-17.5); IMMATURE GRANULOCYTES 0.6 % (0-5); LYMPHOCYTES 3.6 % (15-50); MCH 29.2 pg (26.0-34.0); MEAN PLATELET VOLUME 10.4 fL (7.4-10.4); MONOCYTES 8.1 % (2-11); NEUTROPHILS 87.2 % (40-80); PLATELET COUNT 445 10x3/uL (130-400); RBC 4.56 10x6/uL (4.20-6.10); RDW 13.8 % (11.5-14.5); WBC 14.2 10x3/uL (4.8-10.8)
[2017-08-15 06:38] LABS: ANION GAP 13.2 mmol/L (8-16); CALCIUM 10.5 mg/dL (8.5-10.1); CARBON DIOXIDE 28.4 mmol/L (21.0-32.0); CREATININE - SERUM 1.1 mg/dL (0.6-1.3); POTASSIUM - SERUM 3.6 mmol/L (3.5-5.1)
[2017-08-15 08:33] VITALS: BP 127/65
[2017-08-15 15:47] LABS: ALBUMIN 2.1 g/dL (3.4-5.0); ANION GAP 11.4 mmol/L (8-16); BILIRUBIN - TOTAL 0.8 mg/dL (0.2-1.3); CALCIUM 10.2 mg/dL (8.5-10.1); CARBON DIOXIDE 29.1 mmol/L (21.0-32.0); CREATININE - SERUM 1.2 mg/dL (0.6-1.3); POTASSIUM - SERUM 3.5 mmol/L (3.5-5.1); PROTEIN - SERUM 7.8 g/dL (6.4-8.2)
[2017-08-15 19:00] VITALS: BP 134/70
[2017-08-16 07:37] VITALS: BP 126/70
[2017-08-16] MEDS ORDERED: LEVAQUIN750 MG PO (13:01)
[2017-08-16] MEDS ORDERED: FLORAJEN3 CAPS460 MG PO (13:02)
[2017-08-16] MEDS ORDERED: CELEXA20 MG PO (13:02)
[2017-08-16 19:00] VITALS: BP 113/72
[2017-08-17 08:05] VITALS: BP 143/81
[2017-08-17 19:16] VITALS: BP 126/65
[2017-08-18 08:48] VITALS: BP 114/72
[2017-08-18 19:00] VITALS: BP 131/70
[2017-08-19 06:09] LABS: BASOPHILS 0.1 % (0-2); EOSINOPHILS 1.3 % (0-7); HEMATOCRIT 40.2 % (42.0-54.0); HEMOGLOBIN 13.1 g/dL (13.5-17.5); LYMPHOCYTES 4.2 % (15-50); MCH 29.5 pg (26.0-34.0); MCHC 32.6 g/dL (31.0-37.0); MCV 90.5 fL (80.0-100.0); MEAN PLATELET VOLUME 10.8 fL (7.4-10.4); MONOCYTES 7.5 % (2-11); NEUTROPHILS 85.9 % (40-80); RBC 4.44 10x6/uL (4.20-6.10); RDW 13.8 % (11.5-14.5); WBC 11.5 10x3/uL (4.8-10.8)
[2017-08-19 06:17] LABS: PLATELET COUNT 333 10x3/uL (130-400)
[2017-08-19 06:27] LABS: CALC OSMOLALITY 294 mosm/kg (275-300); CALCIUM 9.3 mg/dL (8.5-10.1); CARBON DIOXIDE 27.7 mmol/L (21.0-32.0); CHLORIDE - SERUM 108 mmol/L (98-107); CREATININE - SERUM 0.9 mg/dL (0.6-1.3); GLUCOSE 110 mg/dL (74-106); POTASSIUM - SERUM 3.8 mmol/L (3.5-5.1); SODIUM 145 mmol/L (136-145); UREA NITROGEN 27 mg/dL (7-18); eGFR NON AFRICAN AMERICAN 88 mL/min (90-120)
[2017-08-19 08:19] VITALS: BP 117/65
[2017-08-19 20:32] VITALS: BP 121/50
[2017-08-20 07:45] VITALS: BP 125/66
[2017-08-20 20:20] VITALS: BP 140/76
[2017-08-21 08:34] VITALS: BP 122/70
[2017-08-21 19:00] VITALS: BP 116/69
[2017-08-22 06:29] LABS: BASOPHILS 0.1 % (0-2); EOSINOPHILS 0.9 % (0-7); HEMATOCRIT 41.4 % (42.0-54.0); HEMOGLOBIN 13.3 g/dL (13.5-17.5); IMMATURE GRANULOCYTES 0.7 % (0-5); LYMPHOCYTES 4.3 % (15-50); MCH 28.9 pg (26.0-34.0); MCHC 32.1 g/dL (31.0-37.0); MCV 89.8 fL (80.0-100.0); MEAN PLATELET VOLUME 10.5 fL (7.4-10.4); RBC 4.61 10x6/uL (4.20-6.10); RDW 13.7 % (11.5-14.5); WBC 11.1 10x3/uL (4.8-10.8)
[2017-08-22 06:30] LABS: PLATELET COUNT 240 10x3/uL (130-400)
[2017-08-22 06:53] LABS: CALC OSMOLALITY 293 mosm/kg (275-300); CALCIUM 9.1 mg/dL (8.5-10.1); CARBON DIOXIDE 25.2 mmol/L (21.0-32.0); CHLORIDE - SERUM 107 mmol/L (98-107); GLUCOSE 114 mg/dL (74-106); POTASSIUM - SERUM 4.2 mmol/L (3.5-5.1); SODIUM 145 mmol/L (136-145); UREA NITROGEN 25 mg/dL (7-18); eGFR NON AFRICAN AMERICAN 78 mL/min (90-120)
[2017-08-22 08:00] VITALS: BP 121/79
[2017-08-22 19:00] VITALS: BP 125/59
[2017-08-23 08:00] VITALS: BP 134/65
[2017-08-23 19:00] VITALS: BP 112/61
[2017-08-24 08:00] VITALS: BP 123/70
[2017-08-24 19:00] VITALS: BP 123/61
[2017-08-25 08:27] VITALS: BP 113/60
== END 2017-08-25 14:11 | disposition home health service (06) | DRG 64 ==
LOC: D.REHAB 17:48
PROVIDERS: Emergency Medicine; Family Medicine
DX: I63.231 Cerebral infarction due to unspecified occlusion or stenosis of right carotid arteries (principal); J18.9 Pneumonia, unspecified organism; J90 Pleural effusion, not elsewhere classified; B37.0 Candidal stomatitis; J44.9 Chronic obstructive pulmonary disease, unspecified; I25.10 Atherosclerotic heart disease of native coronary artery without angina pectoris; I10 Essential (primary) hypertension; E78.00 Pure hypercholesterolemia, unspecified; F10.10 Alcohol abuse, uncomplicated; Z85.118 Personal history of other malignant neoplasm of bronchus and lung; R13.10 Dysphagia, unspecified

== ENCOUNTER 2017-09-17 09:16 | Inpatient (IN) | payer MEDICARE ==
[2017-09-17] VITALS (8 sets, daily range): BP systolic 117–154; BP diastolic 60–75; BMI 20.2
[~2017-09-17] VITALS: Ht 188 cm; Wt 71.2 kg
[~2017-09-17 09:16] MED LIST changes: +ACETAMINOPHEN325 MG PO; +ASPIRIN81 MG PO; +CELEXA20 MG PO; +FLORAJEN3 CAPS460 MG PO; +IPRAT-ALBUT 0.5-3 ML UPD; +LEVAQUIN750 MG PO; +LIPITOR40 MG PO; +MUPIROCIN22 GM TOPICAL; +NORVASC5 MG PO; +PROTONIX40 MG PO; +TOPROL XL50 MG PO; +VITAMIN B-1100 M1 PO
[2017-09-17 10:36] LABS: BASOPHILS 0.1 % (0-2); EOSINOPHILS 0.7 % (0-7); HEMATOCRIT 43.4 % (42.0-54.0); HEMOGLOBIN 14.6 g/dL (13.5-17.5); IMMATURE GRANULOCYTES 0.2 % (0-5); MCH 29.1 pg (26.0-34.0); MCHC 33.6 g/dL (31.0-37.0); MCV 86.6 fL (80.0-100.0); MEAN PLATELET VOLUME 10.3 fL (7.4-10.4); MONOCYTES 5.7 % (2-11); NEUTROPHILS 87.3 % (40-80); PLATELET COUNT 343 10x3/uL (130-400); RBC 5.01 10x6/uL (4.20-6.10); RDW 14.3 % (11.5-14.5); WBC 13.4 10x3/uL (4.8-10.8)
[2017-09-17 10:45] LABS: ALBUMIN 2.8 g/dL (3.4-5.0); ALKALINE PHOSPHATASE 98 U/L (46-116); ALT (SGPT) 20 U/L (10-68); BILIRUBIN - TOTAL 1.91 mg/dL (0.2-1.3); CALC OSMOLALITY 277 mosm/kg (275-300); CALCIUM 9.5 mg/dL (8.5-10.1); CARBON DIOXIDE 25.5 mmol/L (21.0-32.0); CHLORIDE - SERUM 103 mmol/L (98-107); CREATININE - SERUM 0.9 mg/dL (0.6-1.3); GLUCOSE 116 mg/dL (74-106); POTASSIUM - SERUM 3.2 mmol/L (3.5-5.1); PROTEIN - SERUM 7.8 g/dL (6.4-8.2); SODIUM 138 mmol/L (136-145); UREA NITROGEN 16 mg/dL (7-18); eGFR NON AFRICAN AMERICAN 88 mL/min (90-120)
[2017-09-17 10:57] LABS: LIPASE 354 U/L (73-393); PRO BNP 356 pg/mL (0-125); TROPONIN-I < 0.017 ng/mL (0.000-0.060)
[2017-09-17 12:00] LABS: APPEARANCE CLEAR (CLEAR); BACTERIA FEW /hpf (NONE SEEN); BILIRUBIN NEGATIVE (NEGATIVE); COLOR DK YELLOW (YELLOW); GLUCOSE NEGATIVE (NEGATIVE); HYALINE CAST OCC /lpf (NONE SEEN); KETONE MODERATE mg/dL (NEGATIVE); MUCUS >1+ /lpf (NONE SEEN); NITRITE NEGATIVE (NEGATIVE); PROTEIN 1+ mg/dL (NEGATIVE); RED CELLS - URINE 0-5 /hpf (0-5); WHITE CELLS - URINE 0-5 /hpf (0-5)
[2017-09-17 18:31] LABS: CKMB 1.5 U/L (0.0-3.6); CREATINE KINASE 66 UL (21-232)
[2017-09-17 18:33] LABS: TROPONIN-I < 0.017 ng/mL (0.000-0.060)
[2017-09-18 00:44] LABS: CKMB 1.5 U/L (0.0-3.6); CREATINE KINASE 61 UL (21-232); TROPONIN-I < 0.017 ng/mL (0.000-0.060)
[2017-09-18 00:56] VITALS: BP 118/56
[2017-09-18] MEDS ORDERED: NYSTATIN ORAL SU5 ML PO (02:34)
[2017-09-18 03:58] VITALS: BP 129/75
[2017-09-18 07:11] LABS: BASOPHILS 0.2 % (0-2); EOSINOPHILS 1.7 % (0-7); HEMATOCRIT 38.5 % (42.0-54.0); HEMOGLOBIN 12.5 g/dL (13.5-17.5); IMMATURE GRANULOCYTES 0.4 % (0-5); LYMPHOCYTES 4.7 % (15-50); MCH 28.3 pg (26.0-34.0); MCHC 32.5 g/dL (31.0-37.0); MCV 87.1 fL (80.0-100.0); MEAN PLATELET VOLUME 10.2 fL (7.4-10.4); MONOCYTES 8.9 % (2-11); NEUTROPHILS 84.1 % (40-80); PLATELET COUNT 328 10x3/uL (130-400); RBC 4.42 10x6/uL (4.20-6.10); RDW 14.5 % (11.5-14.5); WBC 10.7 10x3/uL (4.8-10.8)
[2017-09-18 07:26] LABS: CALC OSMOLALITY 281 mosm/kg (275-300); CALCIUM 9.2 mg/dL (8.5-10.1); CARBON DIOXIDE 26.4 mmol/L (21.0-32.0); CHLORIDE - SERUM 104 mmol/L (98-107); CKMB 1.6 U/L (0.0-3.6); CREATINE KINASE 59 UL (21-232); CREATININE - SERUM 1.1 mg/dL (0.6-1.3); GLUCOSE 105 mg/dL (74-106); POTASSIUM - SERUM 3.3 mmol/L (3.5-5.1); SODIUM 141 mmol/L (136-145); UREA NITROGEN 15 mg/dL (7-18); eGFR NON AFRICAN AMERICAN 69 mL/min (90-120)
[2017-09-18 07:29] LABS: TROPONIN-I < 0.017 ng/mL (0.000-0.060)
[2017-09-18 08:57] VITALS: BP 117/68
[2017-09-18 12:32] VITALS: Ht 188 cm; Wt 71.2 kg
[2017-09-18 12:49] VITALS: BP 90/61
[2017-09-18 16:52] VITALS: BP 104/60
[2017-09-18 20:00] VITALS: BP 104/60
[2017-09-19] VITALS (7 sets, daily range): BP systolic 106–124; BP diastolic 52–68
[2017-09-19 05:58] LABS: BASOPHILS 0.1 % (0-2); EOSINOPHILS 2.2 % (0-7); HEMATOCRIT 35.8 % (42.0-54.0); HEMOGLOBIN 11.5 g/dL (13.5-17.5); IMMATURE GRANULOCYTES 0.3 % (0-5); LYMPHOCYTES 9.9 % (15-50); MCH 27.9 pg (26.0-34.0); MCHC 32.1 g/dL (31.0-37.0); MCV 86.9 fL (80.0-100.0); MEAN PLATELET VOLUME 9.9 fL (7.4-10.4); NEUTROPHILS 78.5 % (40-80); PLATELET COUNT 311 10x3/uL (130-400); RBC 4.12 10x6/uL (4.20-6.10); RDW 14.5 % (11.5-14.5)
[2017-09-19 05:59] LABS: WBC 6.7 10x3/uL (4.8-10.8)
[2017-09-19 06:13] LABS: CALC OSMOLALITY 279 mosm/kg (275-300); CALCIUM 8.6 mg/dL (8.5-10.1); CARBON DIOXIDE 25.6 mmol/L (21.0-32.0); CHLORIDE - SERUM 104 mmol/L (98-107); GLUCOSE 92 mg/dL (74-106); POTASSIUM - SERUM 3.1 mmol/L (3.5-5.1); SODIUM 140 mmol/L (136-145); UREA NITROGEN 14 mg/dL (7-18); eGFR NON AFRICAN AMERICAN 78 mL/min (90-120)
[2017-09-19 09:37] LABS: MAGNESIUM - SERUM 1.8 mg/dL (1.8-2.4); PHOSPHOROUS 3.2 mg/dL (2.5-4.9)
[2017-09-20 04:05] VITALS: BP 114/64
[2017-09-20 06:09] LABS: BASOPHILS 0.3 % (0-2); EOSINOPHILS 2.4 % (0-7); HEMATOCRIT 34.1 % (42.0-54.0); HEMOGLOBIN 10.9 g/dL (13.5-17.5); IMMATURE GRANULOCYTES 0.6 % (0-5); LYMPHOCYTES 8.1 % (15-50); MCH 27.8 pg (26.0-34.0); MEAN PLATELET VOLUME 9.9 fL (7.4-10.4); MONOCYTES 12.3 % (2-11); NEUTROPHILS 76.3 % (40-80); PLATELET COUNT 297 10x3/uL (130-400); RBC 3.92 10x6/uL (4.20-6.10); RDW 14.6 % (11.5-14.5); WBC 6.3 10x3/uL (4.8-10.8)
[2017-09-20 06:28] LABS: APTT 32.3 SECONDS (22.8-39.4); INR 1.18 (0.85-1.17); PROTIME 14.6 SECONDS (11.6-15.0)
[2017-09-20 06:30] LABS: CALC OSMOLALITY 272 mosm/kg (275-300); CALCIUM 7.9 mg/dL (8.5-10.1); CARBON DIOXIDE 23.3 mmol/L (21.0-32.0); CHLORIDE - SERUM 103 mmol/L (98-107); CREATININE - SERUM 0.8 mg/dL (0.6-1.3); GLUCOSE 92 mg/dL (74-106); SODIUM 137 mmol/L (136-145); UREA NITROGEN 11 mg/dL (7-18); eGFR NON AFRICAN AMERICAN > 90 mL/min (90-120)
[2017-09-20 08:42] VITALS: BP 136/81
[2017-09-20 16:32] VITALS: BP 137/78
[2017-09-20 20:51] VITALS: BP 102/61
[2017-09-21 04:26] VITALS: BP 124/64
[2017-09-21 06:31] LABS: BASOPHILS 0.3 % (0-2); EOSINOPHILS 2.7 % (0-7); HEMATOCRIT 35.4 % (42.0-54.0); HEMOGLOBIN 11.4 g/dL (13.5-17.5); IMMATURE GRANULOCYTES 0.2 % (0-5); MCH 27.9 pg (26.0-34.0); MCHC 32.2 g/dL (31.0-37.0); MCV 86.6 fL (80.0-100.0); MEAN PLATELET VOLUME 9.8 fL (7.4-10.4); MONOCYTES 7.9 % (2-11); NEUTROPHILS 77.9 % (40-80); PLATELET COUNT 325 10x3/uL (130-400); RBC 4.09 10x6/uL (4.20-6.10); RDW 14.4 % (11.5-14.5); WBC 6.2 10x3/uL (4.8-10.8)
[2017-09-21 06:56] LABS: CALC OSMOLALITY 272 mosm/kg (275-300); CARBON DIOXIDE 23.3 mmol/L (21.0-32.0); CHLORIDE - SERUM 106 mmol/L (98-107); CREATININE - SERUM 0.8 mg/dL (0.6-1.3); GLUCOSE 100 mg/dL (74-106); SODIUM 137 mmol/L (136-145); UREA NITROGEN 9 mg/dL (7-18); eGFR NON AFRICAN AMERICAN > 90 mL/min (90-120)
[2017-09-21 07:16] LABS: POTASSIUM - SERUM 2.8 mmol/L (3.5-5.1)
[2017-09-21 08:39] VITALS: BP 115/70
[2017-09-21 12:24] VITALS: BP 108/72
[2017-09-21 15:42] VITALS: BP 114/63
[2017-09-21 19:13] LABS: AFB SPECIMEN PROCESSING Not Indicated (())
[2017-09-21 20:26] VITALS: BP 121/69
[2017-09-22] VITALS (7 sets, daily range): BP systolic 111–146; BP diastolic 58–78
[2017-09-22 05:34] LABS: BASOPHILS 0.2 % (0-2); EOSINOPHILS 3.3 % (0-7); HEMATOCRIT 34.9 % (42.0-54.0); HEMOGLOBIN 11.3 g/dL (13.5-17.5); IMMATURE GRANULOCYTES 0.3 % (0-5); LYMPHOCYTES 9.2 % (15-50); MCH 27.8 pg (26.0-34.0); MCHC 32.4 g/dL (31.0-37.0); MEAN PLATELET VOLUME 9.9 fL (7.4-10.4); MONOCYTES 9.5 % (2-11); NEUTROPHILS 77.5 % (40-80); PLATELET COUNT 318 10x3/uL (130-400); RBC 4.06 10x6/uL (4.20-6.10); RDW 14.5 % (11.5-14.5)
[2017-09-22 05:59] LABS: CALC OSMOLALITY 274 mosm/kg (275-300); CALCIUM 8.1 mg/dL (8.5-10.1); CHLORIDE - SERUM 106 mmol/L (98-107); CREATININE - SERUM 0.7 mg/dL (0.6-1.3); GLUCOSE 91 mg/dL (74-106); POTASSIUM - SERUM 3.1 mmol/L (3.5-5.1); SODIUM 138 mmol/L (136-145); UREA NITROGEN 10 mg/dL (7-18); eGFR NON AFRICAN AMERICAN > 90 mL/min (90-120)
[2017-09-22 12:17] LABS: FUNGUS STAIN Final report (())
[2017-09-23 03:43] VITALS: BP 115/64
[2017-09-23 05:20] LABS: BASOPHILS 0.2 % (0-2); EOSINOPHILS 3.9 % (0-7); HEMATOCRIT 34.9 % (42.0-54.0); HEMOGLOBIN 11.2 g/dL (13.5-17.5); IMMATURE GRANULOCYTES 0.3 % (0-5); MCH 27.9 pg (26.0-34.0); MCHC 32.1 g/dL (31.0-37.0); MCV 86.8 fL (80.0-100.0); MEAN PLATELET VOLUME 9.5 fL (7.4-10.4); MONOCYTES 9.7 % (2-11); NEUTROPHILS 76.9 % (40-80); PLATELET COUNT 320 10x3/uL (130-400); RBC 4.02 10x6/uL (4.20-6.10); RDW 14.7 % (11.5-14.5); WBC 6.6 10x3/uL (4.8-10.8)
[2017-09-23 06:14] LABS: ALKALINE PHOSPHATASE 55 U/L (46-116); ALT (SGPT) 15 U/L (10-68); BILIRUBIN - TOTAL 1.13 mg/dL (0.2-1.3); CALCIUM 8.2 mg/dL (8.5-10.1); CARBON DIOXIDE 23.1 mmol/L (21.0-32.0); CHLORIDE - SERUM 108 mmol/L (98-107); GLUCOSE 95 mg/dL (74-106); POTASSIUM - SERUM 3.4 mmol/L (3.5-5.1); PROTEIN - SERUM 5.5 g/dL (6.4-8.2); SODIUM 138 mmol/L (136-145); eGFR NON AFRICAN AMERICAN 88 mL/min (90-120)
[2017-09-23 06:16] LABS: CALC OSMOLALITY 275 mosm/kg (275-300); CREATININE - SERUM 0.9 mg/dL (0.6-1.3); UREA NITROGEN 13 mg/dL (7-18)
[2017-09-23 08:13] VITALS: BP 119/71
[2017-09-23 12:33] VITALS: BP 128/59
[2017-09-23 16:10] VITALS: BP 123/65
[2017-09-23 19:36] VITALS: BP 130/70
[2017-09-23 23:26] VITALS: BP 126/69
[2017-09-24 04:00] VITALS: BP 119/50
[2017-09-24 05:54] LABS: BASOPHILS 0.2 % (0-2); EOSINOPHILS 3.4 % (0-7); HEMATOCRIT 35.2 % (42.0-54.0); HEMOGLOBIN 11.7 g/dL (13.5-17.5); IMMATURE GRANULOCYTES 0.2 % (0-5); LYMPHOCYTES 8.6 % (15-50); MCHC 33.2 g/dL (31.0-37.0); MCV 87.3 fL (80.0-100.0); MEAN PLATELET VOLUME 9.6 fL (7.4-10.4); MONOCYTES 7.2 % (2-11); NEUTROPHILS 80.4 % (40-80); PLATELET COUNT 314 10x3/uL (130-400); RBC 4.03 10x6/uL (4.20-6.10); RDW 14.8 % (11.5-14.5)
[2017-09-24 06:15] LABS: ALKALINE PHOSPHATASE 58 U/L (46-116); ALT (SGPT) 17 U/L (10-68); BILIRUBIN - TOTAL 1.55 mg/dL (0.2-1.3); CALC OSMOLALITY 280 mosm/kg (275-300); CALCIUM 8.3 mg/dL (8.5-10.1); CARBON DIOXIDE 25.4 mmol/L (21.0-32.0); CHLORIDE - SERUM 108 mmol/L (98-107); CREATININE - SERUM 0.7 mg/dL (0.6-1.3); GLUCOSE 85 mg/dL (74-106); POTASSIUM - SERUM 3.6 mmol/L (3.5-5.1); PROTEIN - SERUM 5.6 g/dL (6.4-8.2); SODIUM 141 mmol/L (136-145); UREA NITROGEN 14 mg/dL (7-18); eGFR NON AFRICAN AMERICAN > 90 mL/min (90-120)
[2017-09-24 08:05] VITALS: BP 150/85
[2017-09-24 12:09] VITALS: BP 136/79
[2017-09-24 16:02] VITALS: BP 137/69
[2017-09-24 19:47] VITALS: BP 137/64
[2017-09-24 23:37] VITALS: BP 129/61
[2017-09-25 03:39] VITALS: BP 123/70
[2017-09-25 05:09] LABS: BASOPHILS 0.3 % (0-2); EOSINOPHILS 3.6 % (0-7); HEMATOCRIT 36.1 % (42.0-54.0); HEMOGLOBIN 11.5 g/dL (13.5-17.5); IMMATURE GRANULOCYTES 0.3 % (0-5); LYMPHOCYTES 9.8 % (15-50); MCH 27.8 pg (26.0-34.0); MCHC 31.9 g/dL (31.0-37.0); MCV 87.2 fL (80.0-100.0); MEAN PLATELET VOLUME 9.7 fL (7.4-10.4); PLATELET COUNT 327 10x3/uL (130-400); RBC 4.14 10x6/uL (4.20-6.10)
[2017-09-25 05:40] LABS: ALBUMIN 2.1 g/dL (3.4-5.0); ALKALINE PHOSPHATASE 58 U/L (46-116); ALT (SGPT) 12 U/L (10-68); BILIRUBIN - TOTAL 1.61 mg/dL (0.2-1.3); CALC OSMOLALITY 276 mosm/kg (275-300); CALCIUM 8.4 mg/dL (8.5-10.1); CARBON DIOXIDE 22.5 mmol/L (21.0-32.0); CHLORIDE - SERUM 107 mmol/L (98-107); CREATININE - SERUM 0.7 mg/dL (0.6-1.3); GLUCOSE 83 mg/dL (74-106); POTASSIUM - SERUM 3.3 mmol/L (3.5-5.1); PROTEIN - SERUM 5.7 g/dL (6.4-8.2); SODIUM 139 mmol/L (136-145); UREA NITROGEN 13 mg/dL (7-18); eGFR NON AFRICAN AMERICAN > 90 mL/min (90-120)
[2017-09-25 08:20] VITALS: BP 136/77
[2017-09-25 12:06] VITALS: BP 102/58
[2017-09-25 16:41] VITALS: BP 112/64; BP 155/69
[2017-09-25 21:09] VITALS: BP 159/73
[2017-09-26 00:10] VITALS: BP 137/77
[2017-09-26 04:32] VITALS: BP 151/82
[2017-09-26 05:47] LABS: BASOPHILS 0.4 % (0-2); EOSINOPHILS 3.1 % (0-7); HEMATOCRIT 35.8 % (42.0-54.0); HEMOGLOBIN 11.5 g/dL (13.5-17.5); IMMATURE GRANULOCYTES 0.4 % (0-5); LYMPHOCYTES 8.1 % (15-50); MCHC 32.1 g/dL (31.0-37.0); MCV 87.1 fL (80.0-100.0); MEAN PLATELET VOLUME 9.4 fL (7.4-10.4); MONOCYTES 9.7 % (2-11); NEUTROPHILS 78.3 % (40-80); PLATELET COUNT 329 10x3/uL (130-400); RBC 4.11 10x6/uL (4.20-6.10); WBC 7.9 10x3/uL (4.8-10.8)
[2017-09-26 06:21] LABS: ALBUMIN 2.1 g/dL (3.4-5.0); ALKALINE PHOSPHATASE 63 U/L (46-116); ALT (SGPT) 15 U/L (10-68); BILIRUBIN - TOTAL 1.51 mg/dL (0.2-1.3); CALC OSMOLALITY 280 mosm/kg (275-300); CALCIUM 8.7 mg/dL (8.5-10.1); CARBON DIOXIDE 23.3 mmol/L (21.0-32.0); CHLORIDE - SERUM 107 mmol/L (98-107); CREATININE - SERUM 0.7 mg/dL (0.6-1.3); GLUCOSE 86 mg/dL (74-106); POTASSIUM - SERUM 3.6 mmol/L (3.5-5.1); PROTEIN - SERUM 5.7 g/dL (6.4-8.2); SODIUM 141 mmol/L (136-145); UREA NITROGEN 15 mg/dL (7-18); eGFR NON AFRICAN AMERICAN > 90 mL/min (90-120)
[2017-09-26 08:25] VITALS: BP 155/78
[2017-09-26 10:14] LABS: ANA REFLEX - DIRECT Negative (Negative)
[2017-09-26] MEDS ORDERED: METOPROLOL TART50 MG PO (11:52)
[2017-09-26] MEDS ORDERED: TESSALON PERLE100 MG PO (11:53)
[2017-09-26 11:57] VITALS: BP 124/70
[2017-10-18 07:36] LABS: FUNGUS MYCOLOGY CULTURE Final report (())
[2017-11-11 13:10] LABS: ACID FAST CULTURE Negative (()); ACID FAST SMEAR Negative (())
== END 2017-09-26 15:21 | DRG 177 ==
LOC: D.ER 09:16 → D.EDHOLD 11:11 → D.MS 11:11
PROVIDERS: Family Medicine; Internal Medicine Nephrology; Internal Medicine Pulmonary Disease; Radiology Vascular & Interventional Radiology
PROC: 0W993ZZ Drainage of Right Pleural Cavity, Percutaneous Approach (ICD-10-PCS; principal; 2017-09-20 09:40)
DX: J69.0 Pneumonitis due to inhalation of food and vomit (principal); J96.21 Acute and chronic respiratory failure with hypoxia; E43 Unspecified severe protein-calorie malnutrition; J90 Pleural effusion, not elsewhere classified; J44.1 Chronic obstructive pulmonary disease with (acute) exacerbation; I69.354 Hemiplegia and hemiparesis following cerebral infarction affecting left non-dominant side; I10 Essential (primary) hypertension; E78.5 Hyperlipidemia, unspecified; K21.9 Gastro-esophageal reflux disease without esophagitis; R53.81 Other malaise; Z85.118 Personal history of other malignant neoplasm of bronchus and lung; Z85.828 Personal history of other malignant neoplasm of skin; Z68.20 Body mass index [BMI] 20.0-20.9, adult

== ENCOUNTER 2017-12-01 11:10 | Inpatient (IN) | payer MEDICARE ==
[~2017-12-01] VITALS: Ht 188 cm; Wt 93.1 kg
--- NOTE | ~2017-12-01 | CN ---
PATIENT NAME:JESSICA CURIEL MEDICAL RECORD: [id number] : 41 LOCATION:. D.2132 ADMIT DATE: 12/01/17 ACCOUNT: [id number] CONSULTING PHYSICIAN: KIM OMER MD REFERRING PHYSICIAN: HAO NAVARRO MD DATE OF CONSULTATION: 12/01/2017 CONSULT REQUESTING PHYSICIAN: Jerome Sidhu DO REASON FOR CONSULTATION: Aspiration pneumonia, right pleural effusion. HISTORY OF PRESENT ILLNESS: Mr. Curiel is a 72-year-old gentleman, very well known to me, who has a history of CA of the lung, COPD and history of CVA. He is getting recurrent aspiration pneumonia. According to the patient, for the last few days, he has worsening shortness of breath, he is congested. He was seen in Dr. Navarro's office. He was taking Zithromax, but the patient was not getting any better. He was seen in the office today and chest radiograph showed right pleural effusion, was not changed since September this year. The patient has a thoracentesis in September and the cytology at that time was negative. REVIEW OF SYSTEMS: As in history of present illness. PAST MEDICAL HISTORY: 1. CA of the lung, followed by Dr. Goldman. 2. Chronic obstructive pulmonary disease. 3. History of cerebrovascular accident. 4. Coronary artery disease. 5. Hypertension. 6. History of ethanol abuse. 7. History of skin cancer. PAST SURGICAL HISTORY: 1. He had a coronary angioplasty in the past. 2. Cataract surgery. 3. Skin cancer removal/excision. ALLERGIES: There is no known drug allergy. MEDICATIONS: On [employer] is reviewed. PERSONAL AND SOCIAL HISTORY: The patient is an ex-smoker. He is a non-drinker. FAMILY HISTORY: Noncontributory. PHYSICAL EXAMINATION: GENERAL: Now, the patient is lying comfortably in bed. He is not in acute distress. VITAL SIGNS: The blood pressure is 154/78, pulse is 77, respirations 18, temperature 98.1, and SpO2 is 93% on room air. HEENT: Conjunctivae are pink. Sclerae are not icteric. NECK: The neck is supple, no JVD. CHEST: The chest excursion minimal on both sides. There is prolonged expiration with wheezing and crackles. HEART: Rhythm regular, normal sound, no murmur. ABDOMEN: The abdomen is soft, bowel sounds present. No hepatosplenomegaly. CONSULT REPORT [id number] JESSICA CURIEL RECTAL: Deferred. EXTREMITIES: No cyanosis, no clubbing, no pedal edema. SKIN: The skin is warm, normal turgor. CENTRAL NERVOUS SYSTEM: The patient is awake and alert. He has hemiplegia. LABORATORY DATA: CBC: The WBC is 11.1, hemoglobin 11.9, hematocrit 36.9, the platelet count is 386. Chemistry: Sodium 139, potassium 3.9, BUN is 12, creatinine 0.8. The D-dimer was 0.55. IMPRESSION: 1. Acute exacerbation of chronic obstructive pulmonary disease. 2. Aspiration pneumonia. 3. Atelectasis of the right lower lobe. 4. History of cancer of the lung. 5. Right pleural effusion, possible parapneumonic. 6. Leukocytosis. RECOMMENDATION: 1. We will follow up on the CT scan of the chest. Start him on Levaquin IV, Zosyn IV to cover for aspiration pneumonia and gram-negative seferino. 2. Methylprednisolone IV. 3. Brovana, budesonide nebulizer. 4. Albuterol, ipratropium nebulizer. 5. Speech pathology consult. 6. In the past, the family did not want any extensive workup. We will discuss with the family. Nobody available in the room at this point. Dr. Sidhu, thank you for involving me in the care of Mr. Curiel. TRANSINT:[id number] Voice Confirmation ID: [id number] DOCUMENT ID: [id number] KIM OMER MD at 1301 CC: HAO NAVARRO MD [id number] DICTATION DATE: 12/01/17 1640 CENTER LINE CUTTER OPERATOR: 12/01/17 1733 ADM IN [facility] [address] [place] [address]
[~2017-12-01 11:10] MED LIST changes: +NYSTATIN ORAL SU5 ML PO; +TESSALON PERLE100 MG PO
[2017-12-01 13:06] LABS: ALBUMIN 2.4 g/dL (3.4-5.0); ALKALINE PHOSPHATASE 72 U/L (46-116); ALT (SGPT) 8 U/L (10-68); BILIRUBIN - TOTAL 0.78 mg/dL (0.2-1.3); CALC OSMOLALITY 277 mosm/kg (275-300); CALCIUM 8.6 mg/dL (8.5-10.1); CHLORIDE - SERUM 104 mmol/L (98-107); CREATININE - SERUM 0.8 mg/dL (0.6-1.3); GLUCOSE 104 mg/dL (74-106); POTASSIUM - SERUM 3.9 mmol/L (3.5-5.1); PROTEIN - SERUM 5.9 g/dL (6.4-8.2); SODIUM 139 mmol/L (136-145); UREA NITROGEN 12 mg/dL (7-18); eGFR NON AFRICAN AMERICAN > 90 mL/min (90-120)
[2017-12-01 13:07] LABS: BASOPHILS 0.2 % (0-2); EOSINOPHILS 0.9 % (0-7); HEMATOCRIT 36.9 % (42.0-54.0); HEMOGLOBIN 11.9 g/dL (13.5-17.5); IMMATURE GRANULOCYTES 0.2 % (0-5); LYMPHOCYTES 5.4 % (15-50); MCH 28.1 pg (26.0-34.0); MCHC 32.2 g/dL (31.0-37.0); MEAN PLATELET VOLUME 9.4 fL (7.4-10.4); MONOCYTES 6.6 % (2-11); NEUTROPHILS 86.7 % (40-80); PLATELET COUNT 386 10x3/uL (130-400); RBC 4.24 10x6/uL (4.20-6.10); RDW 14.9 % (11.5-14.5); WBC 11.1 10x3/uL (4.8-10.8)
[2017-12-01 13:12] VITALS: BP 142/70; BMI 21.8
[2017-12-01 14:57] VITALS: BP 154/78
[2017-12-01 21:01] VITALS: BP 98/59
[2017-12-02 01:32] VITALS: BP 119/80
[2017-12-02 05:48] VITALS: BP 100/55
[2017-12-02 13:11] VITALS: BMI 21.8
[2017-12-02 21:20] VITALS: BP 163/94
[2017-12-03 05:59] VITALS: BP 165/93
[2017-12-03 06:22] LABS: BASOPHILS 0 % (0-2); EOSINOPHILS 0 % (0-7); HEMATOCRIT 33.8 % (42.0-54.0); HEMOGLOBIN 11.1 g/dL (13.5-17.5); IMMATURE GRANULOCYTES 0.2 % (0-5); LYMPHOCYTES 3.3 % (15-50); MCH 28.3 pg (26.0-34.0); MCHC 32.8 g/dL (31.0-37.0); MCV 86.2 fL (80.0-100.0); MEAN PLATELET VOLUME 9.5 fL (7.4-10.4); NEUTROPHILS 94.5 % (40-80); PLATELET COUNT 408 10x3/uL (130-400); RBC 3.92 10x6/uL (4.20-6.10)
[2017-12-03 06:28] LABS: WBC 14.3 10x3/uL (4.8-10.8)
[2017-12-03 06:51] LABS: ALBUMIN 2.3 g/dL (3.4-5.0); ALKALINE PHOSPHATASE 53 U/L (46-116); ALT (SGPT) 8 U/L (10-68); BILIRUBIN - TOTAL 0.59 mg/dL (0.2-1.3); CALC OSMOLALITY 274 mosm/kg (275-300); CALCIUM 8.7 mg/dL (8.5-10.1); CARBON DIOXIDE 24.2 mmol/L (21.0-32.0); CHLORIDE - SERUM 104 mmol/L (98-107); CREATININE - SERUM 0.8 mg/dL (0.6-1.3); GLUCOSE 147 mg/dL (74-106); MAGNESIUM - SERUM 1.8 mg/dL (1.8-2.4); PROTEIN - SERUM 6.2 g/dL (6.4-8.2); SODIUM 137 mmol/L (136-145); eGFR NON AFRICAN AMERICAN > 90 mL/min (90-120)
[2017-12-03 07:03] LABS: UREA NITROGEN 8 mg/dL (7-18)
[2017-12-03 21:04] VITALS: BP 153/79
[2017-12-04 01:13] VITALS: BP 164/79
[2017-12-04 05:07] LABS: BASOPHILS 0 % (0-2); EOSINOPHILS 0 % (0-7); HEMATOCRIT 35.4 % (42.0-54.0); HEMOGLOBIN 11.5 g/dL (13.5-17.5); IMMATURE GRANULOCYTES 0.1 % (0-5); LYMPHOCYTES 3.4 % (15-50); MCH 28.3 pg (26.0-34.0); MCHC 32.5 g/dL (31.0-37.0); MEAN PLATELET VOLUME 9.2 fL (7.4-10.4); MONOCYTES 6.6 % (2-11); NEUTROPHILS 89.9 % (40-80); PLATELET COUNT 408 10x3/uL (130-400); RBC 4.07 10x6/uL (4.20-6.10); RDW 14.9 % (11.5-14.5)
[2017-12-04 05:27] LABS: ALBUMIN 2.4 g/dL (3.4-5.0); ALKALINE PHOSPHATASE 47 U/L (46-116); ALT (SGPT) 8 U/L (10-68); BILIRUBIN - TOTAL 0.47 mg/dL (0.2-1.3); CALC OSMOLALITY 278 mosm/kg (275-300); CALCIUM 8.6 mg/dL (8.5-10.1); CARBON DIOXIDE 23.2 mmol/L (21.0-32.0); CHLORIDE - SERUM 105 mmol/L (98-107); CREATININE - SERUM 0.8 mg/dL (0.6-1.3); GLUCOSE 127 mg/dL (74-106); MAGNESIUM - SERUM 1.8 mg/dL (1.8-2.4); POTASSIUM - SERUM 4.1 mmol/L (3.5-5.1); PROTEIN - SERUM 5.8 g/dL (6.4-8.2); SODIUM 140 mmol/L (136-145); UREA NITROGEN 7 mg/dL (7-18); eGFR NON AFRICAN AMERICAN > 90 mL/min (90-120)
[2017-12-04 06:12] VITALS: BP 178/94
[2017-12-04 07:55] VITALS: BP 164/107
[2017-12-04 11:55] VITALS: BP 160/77
[2017-12-04 16:29] VITALS: BP 154/78
[2017-12-04 20:00] VITALS: BP 158/79
[2017-12-05] VITALS (12 sets, daily range): BP systolic 111–199; BP diastolic 62–99
[2017-12-05 05:33] LABS: BASOPHILS 0 % (0-2); EOSINOPHILS 0 % (0-7); HEMATOCRIT 34.1 % (42.0-54.0); HEMOGLOBIN 11.2 g/dL (13.5-17.5); IMMATURE GRANULOCYTES 0.3 % (0-5); LYMPHOCYTES 5.4 % (15-50); MCHC 32.8 g/dL (31.0-37.0); MCV 85.3 fL (80.0-100.0); MEAN PLATELET VOLUME 9.3 fL (7.4-10.4); MONOCYTES 8.4 % (2-11); NEUTROPHILS 85.9 % (40-80); PLATELET COUNT 407 10x3/uL (130-400); RDW 14.6 % (11.5-14.5)
[2017-12-05 05:50] LABS: WBC 7.8 10x3/uL (4.8-10.8)
[2017-12-05 05:51] LABS: INR 1.1 (0.85-1.17); PROTIME 13.8 SECONDS (11.6-15.0)
[2017-12-05 06:15] LABS: ALBUMIN 2.2 g/dL (3.4-5.0); ALKALINE PHOSPHATASE 38 U/L (46-116); ALT (SGPT) 7 U/L (10-68); BILIRUBIN - TOTAL 0.53 mg/dL (0.2-1.3); CALCIUM 8.4 mg/dL (8.5-10.1); CARBON DIOXIDE 23.5 mmol/L (21.0-32.0); CHLORIDE - SERUM 104 mmol/L (98-107); CREATININE - SERUM 0.8 mg/dL (0.6-1.3); GLUCOSE 121 mg/dL (74-106); LDH 112 U/L (85-227); MAGNESIUM - SERUM 1.8 mg/dL (1.8-2.4); POTASSIUM - SERUM 3.5 mmol/L (3.5-5.1); PROTEIN - SERUM 5.6 g/dL (6.4-8.2); SODIUM 138 mmol/L (136-145); eGFR NON AFRICAN AMERICAN > 90 mL/min (90-120)
[2017-12-05 06:17] LABS: CALC OSMOLALITY 275 mosm/kg (275-300); UREA NITROGEN 9 mg/dL (7-18)
[2017-12-05 13:59] LABS: PROTEIN - BODY FLUID 3.8 G/DL
[2017-12-05 14:11] LABS: MACROPHAGES BF 27 %; NEUT - BF 20 %
[2017-12-06 01:57] VITALS: BP 137/87
[2017-12-06 06:30] LABS: BASOPHILS 0 % (0-2); EOSINOPHILS 0 % (0-7); HEMATOCRIT 36.7 % (42.0-54.0); HEMOGLOBIN 12.4 g/dL (13.5-17.5); IMMATURE GRANULOCYTES 0.3 % (0-5); LYMPHOCYTES 4.3 % (15-50); MCH 28.9 pg (26.0-34.0); MCHC 33.8 g/dL (31.0-37.0); MCV 85.5 fL (80.0-100.0); MEAN PLATELET VOLUME 9.3 fL (7.4-10.4); MONOCYTES 6.3 % (2-11); NEUTROPHILS 89.1 % (40-80); PLATELET COUNT 401 10x3/uL (130-400); RBC 4.29 10x6/uL (4.20-6.10); RDW 14.5 % (11.5-14.5); WBC 9.3 10x3/uL (4.8-10.8)
[2017-12-06 06:34] VITALS: BP 140/82
[2017-12-06 06:55] LABS: ALBUMIN 2.2 g/dL (3.4-5.0); ALKALINE PHOSPHATASE 37 U/L (46-116); ALT (SGPT) 7 U/L (10-68); BILIRUBIN - TOTAL 0.83 mg/dL (0.2-1.3); CALC OSMOLALITY 280 mosm/kg (275-300); CALCIUM 8.5 mg/dL (8.5-10.1); CHLORIDE - SERUM 104 mmol/L (98-107); CREATININE - SERUM 0.8 mg/dL (0.6-1.3); GLUCOSE 137 mg/dL (74-106); MAGNESIUM - SERUM 1.9 mg/dL (1.8-2.4); POTASSIUM - SERUM 3.5 mmol/L (3.5-5.1); PROTEIN - SERUM 5.6 g/dL (6.4-8.2); SODIUM 138 mmol/L (136-145); eGFR NON AFRICAN AMERICAN > 90 mL/min (90-120)
[2017-12-06 06:56] LABS: UREA NITROGEN 20 mg/dL (7-18)
[2017-12-06 07:48] VITALS: BP 155/92
[2017-12-06 11:39] VITALS: BP 105/72
[2017-12-06 15:51] VITALS: BP 153/66
[2017-12-06 21:13] VITALS: BP 138/78
[2017-12-07 01:25] VITALS: BP 148/72
[2017-12-07 05:39] LABS: BASOPHILS 0 % (0-2); EOSINOPHILS 0 % (0-7); HEMATOCRIT 35.9 % (42.0-54.0); HEMOGLOBIN 11.8 g/dL (13.5-17.5); IMMATURE GRANULOCYTES 0.3 % (0-5); LYMPHOCYTES 2.5 % (15-50); MCH 27.9 pg (26.0-34.0); MCHC 32.9 g/dL (31.0-37.0); MCV 84.9 fL (80.0-100.0); MEAN PLATELET VOLUME 9.2 fL (7.4-10.4); MONOCYTES 4.9 % (2-11); NEUTROPHILS 92.3 % (40-80); PLATELET COUNT 362 10x3/uL (130-400); RBC 4.23 10x6/uL (4.20-6.10); RDW 14.3 % (11.5-14.5)
[2017-12-07 05:47] LABS: WBC 15.4 10x3/uL (4.8-10.8)
[2017-12-07 06:04] LABS: ALBUMIN 2.2 g/dL (3.4-5.0); ALKALINE PHOSPHATASE 34 U/L (46-116); BILIRUBIN - TOTAL 0.91 mg/dL (0.2-1.3); CALC OSMOLALITY 280 mosm/kg (275-300); CALCIUM 8.4 mg/dL (8.5-10.1); CARBON DIOXIDE 25.7 mmol/L (21.0-32.0); CHLORIDE - SERUM 104 mmol/L (98-107); CREATININE - SERUM 0.8 mg/dL (0.6-1.3); GLUCOSE 148 mg/dL (74-106); POTASSIUM - SERUM 3.3 mmol/L (3.5-5.1); PROTEIN - SERUM 5.4 g/dL (6.4-8.2); SODIUM 137 mmol/L (136-145); UREA NITROGEN 23 mg/dL (7-18); eGFR NON AFRICAN AMERICAN > 90 mL/min (90-120)
[2017-12-07 06:05] LABS: ALT (SGPT) 9 U/L (10-68)
[2017-12-07 06:07] VITALS: BP 182/96
[2017-12-07 16:14] LABS: ACID FAST SMEAR Negative (()); AFB SPECIMEN PROCESSING Not Indicated (())
[2017-12-07 17:05] VITALS: BP 140/88
[2017-12-07 20:58] VITALS: BP 158/83
[2017-12-08] VITALS: BP 178/87
[2017-12-08 05:22] VITALS: BP 157/80
[2017-12-08 06:48] LABS: CALC OSMOLALITY 275 mosm/kg (275-300); CALCIUM 8.1 mg/dL (8.5-10.1); CARBON DIOXIDE 25.8 mmol/L (21.0-32.0); CHLORIDE - SERUM 104 mmol/L (98-107); CREATININE - SERUM 0.7 mg/dL (0.6-1.3); GLUCOSE 141 mg/dL (74-106); POTASSIUM - SERUM 3.1 mmol/L (3.5-5.1); SODIUM 136 mmol/L (136-145); UREA NITROGEN 18 mg/dL (7-18); eGFR NON AFRICAN AMERICAN > 90 mL/min (90-120)
[2017-12-08 07:15] LABS: HEMATOCRIT 35.2 % (42.0-54.0); HEMOGLOBIN 11.5 g/dL (13.5-17.5); MCH 27.6 pg (26.0-34.0); MCHC 32.7 g/dL (31.0-37.0); MCV 84.6 fL (80.0-100.0); MEAN PLATELET VOLUME 9.1 fL (7.4-10.4); PLATELET COUNT 352 10x3/uL (130-400); RBC 4.16 10x6/uL (4.20-6.10); RDW 14.4 % (11.5-14.5); WBC 23.3 10x3/uL (4.8-10.8)
[2017-12-08 08:25] LABS: LYMPHOCYTES 4 % (15-50); MONOCYTES 5 % (2-11); NEUTROPHILS 91 % (40-80); PLATELET ESTIMATE NORMAL
[2017-12-08 08:30] VITALS: BP 157/73
[2017-12-08] MEDS ORDERED: IPRAT-ALBUT 0.5-3 ML UPD (10:46)
[2017-12-08] MEDS ORDERED: BROVANA15 MCG/2 M INH (10:46)
[2017-12-08 11:51] VITALS: BP 138/69
[2017-12-08 12:17] LABS: FUNGUS STAIN Final report (())
[2017-12-08 16:06] VITALS: BP 136/76
[2017-12-08 20:00] VITALS: BP 154/77
[2017-12-09 04:59] VITALS: BP 107/66
[2017-12-09 07:12] LABS: BASOPHILS 0 % (0-2); EOSINOPHILS 0 % (0-7); HEMATOCRIT 34.3 % (42.0-54.0); HEMOGLOBIN 11.3 g/dL (13.5-17.5); IMMATURE GRANULOCYTES 0.4 % (0-5); LYMPHOCYTES 1.5 % (15-50); MCH 27.8 pg (26.0-34.0); MCHC 32.9 g/dL (31.0-37.0); MCV 84.5 fL (80.0-100.0); MEAN PLATELET VOLUME 9.4 fL (7.4-10.4); MONOCYTES 3.9 % (2-11); NEUTROPHILS 94.2 % (40-80); PLATELET COUNT 349 10x3/uL (130-400); RBC 4.06 10x6/uL (4.20-6.10); RDW 14.3 % (11.5-14.5); WBC 23.1 10x3/uL (4.8-10.8)
[2017-12-09 07:24] LABS: CALC OSMOLALITY 276 mosm/kg (275-300); CALCIUM 8.1 mg/dL (8.5-10.1); CARBON DIOXIDE 25.5 mmol/L (21.0-32.0); CHLORIDE - SERUM 105 mmol/L (98-107); CREATININE - SERUM 0.8 mg/dL (0.6-1.3); GLUCOSE 136 mg/dL (74-106); POTASSIUM - SERUM 3.1 mmol/L (3.5-5.1); SODIUM 137 mmol/L (136-145); UREA NITROGEN 16 mg/dL (7-18); eGFR NON AFRICAN AMERICAN > 90 mL/min (90-120)
[2017-12-09 10:01] VITALS: BP 155/81
[2017-12-09 11:36] VITALS: BP 135/86
[2017-12-09 12:06] VITALS: Ht 188 cm; Wt 93.1 kg
[2017-12-09 16:00] VITALS: BP 141/79
[2017-12-09 21:10] VITALS: BP 141/77
[2017-12-10 05:13] VITALS: BP 159/83
[2017-12-10 05:28] LABS: BASOPHILS 0 % (0-2); HEMATOCRIT 34.8 % (42.0-54.0); HEMOGLOBIN 11.4 g/dL (13.5-17.5); IMMATURE GRANULOCYTES 0.3 % (0-5); LYMPHOCYTES 2.8 % (15-50); MCH 27.9 pg (26.0-34.0); MCHC 32.8 g/dL (31.0-37.0); MCV 85.1 fL (80.0-100.0); MEAN PLATELET VOLUME 9.2 fL (7.4-10.4); MONOCYTES 8.9 % (2-11); PLATELET COUNT 328 10x3/uL (130-400); RBC 4.09 10x6/uL (4.20-6.10); RDW 14.5 % (11.5-14.5); WBC 17.7 10x3/uL (4.8-10.8)
[2017-12-10 06:02] LABS: CARBON DIOXIDE 25.3 mmol/L (21.0-32.0); CHLORIDE - SERUM 106 mmol/L (98-107); CREATININE - SERUM 0.6 mg/dL (0.6-1.3); SODIUM 139 mmol/L (136-145); UREA NITROGEN 14 mg/dL (7-18); eGFR NON AFRICAN AMERICAN > 90 mL/min (90-120)
[2017-12-10 06:13] LABS: CALC OSMOLALITY 277 mosm/kg (275-300); GLUCOSE 84 mg/dL (74-106); POTASSIUM - SERUM 3.7 mmol/L (3.5-5.1)
[2017-12-10 20:00] VITALS: BP 156/72
[2017-12-11] VITALS: BP 177/89
[2017-12-11 04:00] VITALS: BP 170/87
[2017-12-11 05:31] LABS: BASOPHILS 0 % (0-2); EOSINOPHILS 0.9 % (0-7); HEMATOCRIT 35.7 % (42.0-54.0); HEMOGLOBIN 11.9 g/dL (13.5-17.5); IMMATURE GRANULOCYTES 0.4 % (0-5); LYMPHOCYTES 3.5 % (15-50); MCH 28.4 pg (26.0-34.0); MCHC 33.3 g/dL (31.0-37.0); MCV 85.2 fL (80.0-100.0); MEAN PLATELET VOLUME 9.1 fL (7.4-10.4); MONOCYTES 9.9 % (2-11); NEUTROPHILS 85.3 % (40-80); PLATELET COUNT 322 10x3/uL (130-400); RBC 4.19 10x6/uL (4.20-6.10); RDW 14.6 % (11.5-14.5); WBC 16.4 10x3/uL (4.8-10.8)
[2017-12-11 05:46] LABS: CALC OSMOLALITY 274 mosm/kg (275-300); CALCIUM 7.9 mg/dL (8.5-10.1); CHLORIDE - SERUM 105 mmol/L (98-107); CREATININE - SERUM 0.6 mg/dL (0.6-1.3); GLUCOSE 85 mg/dL (74-106); POTASSIUM - SERUM 3.3 mmol/L (3.5-5.1); SODIUM 138 mmol/L (136-145); UREA NITROGEN 12 mg/dL (7-18); eGFR NON AFRICAN AMERICAN > 90 mL/min (90-120)
[2017-12-11 08:38] VITALS: BP 153/82
[2017-12-11 09:25] LABS: INR 0.98 (0.85-1.17); PROTIME 12.6 SECONDS (11.6-15.0)
[2017-12-11 12:15] VITALS: BP 149/89
[2017-12-11 15:59] VITALS: BP 131/70
[2017-12-11 21:24] VITALS: BP 157/77
[2017-12-12] VITALS (11 sets, daily range): BP systolic 105–184; BP diastolic 54–98
[2017-12-12 05:44] LABS: BASOPHILS 0 % (0-2); EOSINOPHILS 1.5 % (0-7); HEMATOCRIT 36.6 % (42.0-54.0); HEMOGLOBIN 12.1 g/dL (13.5-17.5); IMMATURE GRANULOCYTES 0.7 % (0-5); LYMPHOCYTES 5.4 % (15-50); MCH 28.1 pg (26.0-34.0); MCHC 33.1 g/dL (31.0-37.0); MCV 84.9 fL (80.0-100.0); MEAN PLATELET VOLUME 9.2 fL (7.4-10.4); MONOCYTES 10.9 % (2-11); NEUTROPHILS 81.5 % (40-80); PLATELET COUNT 340 10x3/uL (130-400); RBC 4.31 10x6/uL (4.20-6.10); RDW 14.3 % (11.5-14.5)
[2017-12-12 05:57] LABS: CALC OSMOLALITY 267 mosm/kg (275-300); CALCIUM 8.2 mg/dL (8.5-10.1); CARBON DIOXIDE 24.8 mmol/L (21.0-32.0); CHLORIDE - SERUM 102 mmol/L (98-107); CREATININE - SERUM 0.7 mg/dL (0.6-1.3); GLUCOSE 75 mg/dL (74-106); SODIUM 135 mmol/L (136-145); UREA NITROGEN 10 mg/dL (7-18); eGFR NON AFRICAN AMERICAN > 90 mL/min (90-120)
[2017-12-12 06:02] LABS: POTASSIUM - SERUM 3.8 mmol/L (3.5-5.1)
[2017-12-12 06:12] LABS: WBC 12.2 10x3/uL (4.8-10.8)
[2017-12-13] VITALS: BP 140/89
[2017-12-13 06:37] VITALS: BP 163/82
[2017-12-13 09:00] VITALS: BP 138/79
[2017-12-13 11:02] VITALS: BP 129/86
[2017-12-13 13:29] LABS: ALBUMIN 1.8 g/dL (3.4-5.0); ALKALINE PHOSPHATASE 44 U/L (46-116); ALT (SGPT) 10 U/L (10-68); BILIRUBIN - TOTAL 1.09 mg/dL (0.2-1.3); CALC OSMOLALITY 271 mosm/kg (275-300); CALCIUM 8.1 mg/dL (8.5-10.1); CARBON DIOXIDE 25.6 mmol/L (21.0-32.0); CHLORIDE - SERUM 104 mmol/L (98-107); CREATININE - SERUM 0.7 mg/dL (0.6-1.3); GLUCOSE 110 mg/dL (74-106); POTASSIUM - SERUM 4.2 mmol/L (3.5-5.1); PROTEIN - SERUM 5.2 g/dL (6.4-8.2); SODIUM 135 mmol/L (136-145); eGFR NON AFRICAN AMERICAN > 90 mL/min (90-120)
[2017-12-13 13:31] LABS: UREA NITROGEN 14 mg/dL (7-18)
[2017-12-13 14:24] LABS: BASOPHILS 0 % (0-2); EOSINOPHILS 0 % (0-7); HEMATOCRIT 37.6 % (42.0-54.0); HEMOGLOBIN 12.6 g/dL (13.5-17.5); IMMATURE GRANULOCYTES 0.6 % (0-5); LYMPHOCYTES 2.2 % (15-50); MCH 28.8 pg (26.0-34.0); MCHC 33.5 g/dL (31.0-37.0); MCV 85.8 fL (80.0-100.0); MEAN PLATELET VOLUME 9.3 fL (7.4-10.4); MONOCYTES 2.4 % (2-11); NEUTROPHILS 94.8 % (40-80); PLATELET COUNT 322 10x3/uL (130-400); RBC 4.38 10x6/uL (4.20-6.10); RDW 14.3 % (11.5-14.5); WBC 28.7 10x3/uL (4.8-10.8)
[2017-12-13 15:39] VITALS: BP 102/53
[2017-12-13 20:00] VITALS: BP 126/71
[2017-12-14 04:00] VITALS: BP 111/65
[2017-12-14 09:03] VITALS: BP 150/66
[2017-12-14 11:04] VITALS: BP 140/78
[2017-12-14 15:26] VITALS: BP 96/70
[2017-12-14 16:52] LABS: HEMATOCRIT 33.5 % (42.0-54.0); HEMOGLOBIN 11.1 g/dL (13.5-17.5); MCH 28.2 pg (26.0-34.0); MCHC 33.1 g/dL (31.0-37.0); MEAN PLATELET VOLUME 8.5 fL (7.4-10.4); PLATELET COUNT 259 10x3/uL (130-400); RBC 3.94 10x6/uL (4.20-6.10); RDW 14.5 % (11.5-14.5); WBC 31.5 10x3/uL (4.8-10.8)
[2017-12-14 16:58] LABS: CALC OSMOLALITY 276 mosm/kg (275-300); CARBON DIOXIDE 26.1 mmol/L (21.0-32.0); CHLORIDE - SERUM 104 mmol/L (98-107); CREATININE - SERUM 0.8 mg/dL (0.6-1.3); GLUCOSE 141 mg/dL (74-106); POTASSIUM - SERUM 3.9 mmol/L (3.5-5.1); SODIUM 137 mmol/L (136-145); UREA NITROGEN 16 mg/dL (7-18); eGFR NON AFRICAN AMERICAN > 90 mL/min (90-120)
[2017-12-14 17:49] LABS: MONOCYTES 2 % (2-11); NEUTROPHILS 98 % (40-80); PLATELET ESTIMATE NORMAL
[2017-12-14 20:37] VITALS: BP 120/65
[2017-12-15 01:19] VITALS: BP 116/52
[2017-12-15 05:38] VITALS: BP 138/68
[2017-12-15 06:28] LABS: BASOPHILS 0 % (0-2); EOSINOPHILS 0.2 % (0-7); HEMATOCRIT 34.6 % (42.0-54.0); HEMOGLOBIN 11.2 g/dL (13.5-17.5); IMMATURE GRANULOCYTES 0.6 % (0-5); LYMPHOCYTES 3.3 % (15-50); MCH 27.9 pg (26.0-34.0); MCHC 32.4 g/dL (31.0-37.0); MCV 86.3 fL (80.0-100.0); MEAN PLATELET VOLUME 9.2 fL (7.4-10.4); NEUTROPHILS 91.9 % (40-80); PLATELET COUNT 277 10x3/uL (130-400); RBC 4.01 10x6/uL (4.20-6.10); RDW 14.4 % (11.5-14.5); WBC 24.7 10x3/uL (4.8-10.8)
[2017-12-15 06:43] LABS: ALBUMIN 1.6 g/dL (3.4-5.0); ALKALINE PHOSPHATASE 52 U/L (46-116); ALT (SGPT) 10 U/L (10-68); BILIRUBIN - TOTAL 0.72 mg/dL (0.2-1.3); CALC OSMOLALITY 277 mosm/kg (275-300); CALCIUM 8.5 mg/dL (8.5-10.1); CARBON DIOXIDE 27.5 mmol/L (21.0-32.0); CHLORIDE - SERUM 106 mmol/L (98-107); CREATININE - SERUM 0.7 mg/dL (0.6-1.3); GLUCOSE 85 mg/dL (74-106); POTASSIUM - SERUM 3.6 mmol/L (3.5-5.1); PROTEIN - SERUM 5.2 g/dL (6.4-8.2); SODIUM 139 mmol/L (136-145); UREA NITROGEN 16 mg/dL (7-18); eGFR NON AFRICAN AMERICAN > 90 mL/min (90-120)
[2017-12-15 09:35] VITALS: BP 155/75
[2017-12-15 12:18] VITALS: BP 140/72
[2017-12-15 21:13] VITALS: BP 124/67
[2017-12-16 00:54] VITALS: BP 137/51
[2017-12-16 05:25] VITALS: BP 136/73
[2017-12-16 08:54] VITALS: BP 144/78
[2017-12-16 11:16] LABS: BASOPHILS 0 % (0-2); EOSINOPHILS 0.5 % (0-7); HEMATOCRIT 32.2 % (42.0-54.0); HEMOGLOBIN 10.6 g/dL (13.5-17.5); IMMATURE GRANULOCYTES 0.3 % (0-5); LYMPHOCYTES 3.1 % (15-50); MCH 28.3 pg (26.0-34.0); MCHC 32.9 g/dL (31.0-37.0); MCV 85.9 fL (80.0-100.0); MEAN PLATELET VOLUME 9.3 fL (7.4-10.4); MONOCYTES 4.8 % (2-11); NEUTROPHILS 91.3 % (40-80); PLATELET COUNT 224 10x3/uL (130-400); RBC 3.75 10x6/uL (4.20-6.10); RDW 14.3 % (11.5-14.5)
[2017-12-16 11:18] LABS: WBC 15.3 10x3/uL (4.8-10.8)
[2017-12-16 11:26] LABS: ALBUMIN 1.5 g/dL (3.4-5.0); ALKALINE PHOSPHATASE 57 U/L (46-116); ALT (SGPT) 10 U/L (10-68); BILIRUBIN - TOTAL 0.72 mg/dL (0.2-1.3); CALC OSMOLALITY 276 mosm/kg (275-300); CALCIUM 7.7 mg/dL (8.5-10.1); CHLORIDE - SERUM 106 mmol/L (98-107); CREATININE - SERUM 0.6 mg/dL (0.6-1.3); GLUCOSE 103 mg/dL (74-106); POTASSIUM - SERUM 3.2 mmol/L (3.5-5.1); PROTEIN - SERUM 4.2 g/dL (6.4-8.2); SODIUM 139 mmol/L (136-145); UREA NITROGEN 11 mg/dL (7-18); eGFR NON AFRICAN AMERICAN > 90 mL/min (90-120)
[2017-12-16 12:36] VITALS: BP 146/81
[2017-12-16 16:25] VITALS: BP 117/59
[2017-12-16 20:30] VITALS: BP 115/47
[2017-12-17 00:30] VITALS: BP 155/70
[2017-12-17 04:30] VITALS: BP 131/69
[2017-12-17 05:06] LABS: BASOPHILS 0 % (0-2); EOSINOPHILS 0.7 % (0-7); HEMATOCRIT 30.2 % (42.0-54.0); HEMOGLOBIN 9.8 g/dL (13.5-17.5); IMMATURE GRANULOCYTES 0.3 % (0-5); LYMPHOCYTES 3.2 % (15-50); MCH 27.8 pg (26.0-34.0); MCHC 32.5 g/dL (31.0-37.0); MCV 85.8 fL (80.0-100.0); MONOCYTES 8.3 % (2-11); NEUTROPHILS 87.5 % (40-80); PLATELET COUNT 226 10x3/uL (130-400); RBC 3.52 10x6/uL (4.20-6.10); RDW 14.2 % (11.5-14.5)
[2017-12-17 05:11] LABS: WBC 10.7 10x3/uL (4.8-10.8)
[2017-12-17 05:32] LABS: ALBUMIN 1.4 g/dL (3.4-5.0); ALKALINE PHOSPHATASE 47 U/L (46-116); ALT (SGPT) 8 U/L (10-68); BILIRUBIN - TOTAL 0.79 mg/dL (0.2-1.3); CALC OSMOLALITY 271 mosm/kg (275-300); CALCIUM 7.9 mg/dL (8.5-10.1); CARBON DIOXIDE 23.1 mmol/L (21.0-32.0); CHLORIDE - SERUM 106 mmol/L (98-107); CREATININE - SERUM 0.6 mg/dL (0.6-1.3); GLUCOSE 91 mg/dL (74-106); MAGNESIUM - SERUM 1.7 mg/dL (1.8-2.4); POTASSIUM - SERUM 3.7 mmol/L (3.5-5.1); PROTEIN - SERUM 4.6 g/dL (6.4-8.2); SODIUM 137 mmol/L (136-145); eGFR NON AFRICAN AMERICAN > 90 mL/min (90-120)
[2017-12-17 05:38] LABS: UREA NITROGEN 7 mg/dL (7-18)
[2017-12-17 08:37] VITALS: BP 144/70
[2017-12-17 11:16] VITALS: BP 122/57
[2017-12-17 16:54] VITALS: BP 151/75
[2017-12-17 22:01] VITALS: BP 136/65
[2017-12-18 00:38] VITALS: BP 148/59
[2017-12-18 06:31] LABS: BASOPHILS 0 % (0-2); EOSINOPHILS 1.1 % (0-7); IMMATURE GRANULOCYTES 0.4 % (0-5); LYMPHOCYTES 3.2 % (15-50); MCH 27.6 pg (26.0-34.0); MCHC 32.3 g/dL (31.0-37.0); MCV 85.6 fL (80.0-100.0); MEAN PLATELET VOLUME 9.3 fL (7.4-10.4); MONOCYTES 9.4 % (2-11); NEUTROPHILS 85.9 % (40-80); PLATELET COUNT 227 10x3/uL (130-400); RBC 3.62 10x6/uL (4.20-6.10); RDW 14.1 % (11.5-14.5); WBC 10.2 10x3/uL (4.8-10.8)
[2017-12-18 06:36] VITALS: BP 136/67
[2017-12-18 06:46] LABS: ALBUMIN 1.4 g/dL (3.4-5.0); ALKALINE PHOSPHATASE 50 U/L (46-116); ALT (SGPT) 8 U/L (10-68); CALC OSMOLALITY 272 mosm/kg (275-300); CALCIUM 8.1 mg/dL (8.5-10.1); CARBON DIOXIDE 25.6 mmol/L (21.0-32.0); CHLORIDE - SERUM 105 mmol/L (98-107); CREATININE - SERUM 0.6 mg/dL (0.6-1.3); GLUCOSE 84 mg/dL (74-106); MAGNESIUM - SERUM 1.8 mg/dL (1.8-2.4); POTASSIUM - SERUM 3.5 mmol/L (3.5-5.1); PROTEIN - SERUM 4.7 g/dL (6.4-8.2); SODIUM 138 mmol/L (136-145); UREA NITROGEN 7 mg/dL (7-18); eGFR NON AFRICAN AMERICAN > 90 mL/min (90-120)
[2017-12-18 09:34] VITALS: BP 169/76
[2017-12-18 10:55] VITALS: BP 140/68
[2017-12-18 16:45] VITALS: BP 158/73
[2017-12-18 21:04] VITALS: BP 140/58
[2017-12-19 00:56] VITALS: BP 150/80
[2017-12-19 04:22] VITALS: BP 153/67
[2017-12-19 04:37] LABS: BASOPHILS 0 % (0-2); EOSINOPHILS 1.5 % (0-7); HEMATOCRIT 29.4 % (42.0-54.0); HEMOGLOBIN 9.7 g/dL (13.5-17.5); IMMATURE GRANULOCYTES 0.5 % (0-5); LYMPHOCYTES 3.9 % (15-50); MCH 28.3 pg (26.0-34.0); MCV 85.7 fL (80.0-100.0); MEAN PLATELET VOLUME 9.3 fL (7.4-10.4); MONOCYTES 10.9 % (2-11); NEUTROPHILS 83.2 % (40-80); PLATELET COUNT 207 10x3/uL (130-400); RBC 3.43 10x6/uL (4.20-6.10); WBC 9.1 10x3/uL (4.8-10.8)
[2017-12-19 04:55] LABS: ALBUMIN 1.3 g/dL (3.4-5.0); ALKALINE PHOSPHATASE 44 U/L (46-116); ALT (SGPT) 7 U/L (10-68); BILIRUBIN - TOTAL 0.52 mg/dL (0.2-1.3); CALC OSMOLALITY 273 mosm/kg (275-300); CARBON DIOXIDE 26.5 mmol/L (21.0-32.0); CHLORIDE - SERUM 104 mmol/L (98-107); CREATININE - SERUM 0.6 mg/dL (0.6-1.3); GLUCOSE 90 mg/dL (74-106); MAGNESIUM - SERUM 1.7 mg/dL (1.8-2.4); POTASSIUM - SERUM 3.3 mmol/L (3.5-5.1); PROTEIN - SERUM 4.7 g/dL (6.4-8.2); SODIUM 138 mmol/L (136-145); UREA NITROGEN 6 mg/dL (7-18); eGFR NON AFRICAN AMERICAN > 90 mL/min (90-120)
[2017-12-19 07:49] VITALS: BP 149/72
[2018-01-03 11:21] LABS: FUNGUS MYCOLOGY CULTURE Final report (())
== END 2017-12-19 09:10 | DRG 177 ==
LOC: D.M2 11:10 → D.SDCHOLD 11:10 → D.M2 11:31
PROVIDERS: Emergency Medicine; Family Medicine; Family Medicine Adult Medicine; General Practice; Internal Medicine Nephrology; Internal Medicine Pulmonary Disease; Specialist
PROC: 0W9930Z Drainage of Right Pleural Cavity with Drainage Device, Percutaneous Approach (ICD-10-PCS; 2017-12-05)
PROC: 0W993ZZ Drainage of Right Pleural Cavity, Percutaneous Approach (ICD-10-PCS; principal; 2017-12-05 11:25)
PROC: 0W9930Z Drainage of Right Pleural Cavity with Drainage Device, Percutaneous Approach (ICD-10-PCS; 2017-12-12)
DX: J69.0 Pneumonitis due to inhalation of food and vomit (principal); J96.01 Acute respiratory failure with hypoxia; J44.1 Chronic obstructive pulmonary disease with (acute) exacerbation; J95.811 Postprocedural pneumothorax; E44.0 Moderate protein-calorie malnutrition; J90 Pleural effusion, not elsewhere classified; J98.11 Atelectasis; I25.10 Atherosclerotic heart disease of native coronary artery without angina pectoris; I10 Essential (primary) hypertension; Y83.8 Other surgical procedures as the cause of abnormal reaction of the patient, or of later complication, without mention of misadventure at the time of the procedure; Y92.239 Unspecified place in hospital as the place of occurrence of the external cause; K21.9 Gastro-esophageal reflux disease without esophagitis; Z68.21 Body mass index [BMI] 21.0-21.9, adult; Z66 Do not resuscitate; J98.09 Other diseases of bronchus, not elsewhere classified; D64.9 Anemia, unspecified; Z85.118 Personal history of other malignant neoplasm of bronchus and lung; Z87.891 Personal history of nicotine dependence; Z86.73 Personal history of transient ischemic attack (TIA), and cerebral infarction without residual deficits